=== PATIENT | female | born 1935 | race Caucasian/White ===

== ENCOUNTER 2017-07-28 13:02 | Emergency (ER) | payer MEDICARE ==
[2017-07-28 14:23] LABS: BASOPHILS % (AUTO) 0.2 % (0.0-5.0); HEMATOCRIT 40.3 % (36-48); LYMPHOCYTES % (AUTO) 16.4 % (21.0-51.0); MEAN CORPUSCULAR HEMOGLOBIN 30.8 pg (27.0-33.0); MEAN CORPUSCULAR VOLUME 90.7 fL (79-99); MONOCYTES % (AUTO) 5.5 % (3.0-13.0); NEUTROPHILS % (AUTO) 76.9 % (40.0-77.0); PLATELET COUNT (AUTO) 499 K/uL (130-400); RED BLOOD CELL COUNT(AUTO) 4.44 MIL/uL (4.00-5.50); RED CELL DISTRIBUTION WIDTH 17.2 % (11.0-15.5); WHITE BLOOD COUNT (AUTO) 10.3 K/uL (4.8-10.8)
[2017-07-28 15:11] LABS: ALBUMIN 3.5 g/dL (3.5-5.0); BILIRUBIN,TOTAL 0.5 mg/dL (0.2-1.0); CREATININE 0.9 mg/dL (0.5-1.5); POTASSIUM 3.4 mmol/L (3.5-5.1); TOTAL PROTEIN, SERUM 7.2 g/dL (6.0-8.3)
[2017-07-28] MEDS ORDERED: METHYLPREDNISOLONE SOD SUCC 40MG/ML 1ML ONE (15:29)
[2017-07-28] MEDS ORDERED: BENZONATATE 100 MG CAPSULE PO ONE (15:29)
[2017-07-28] MEDS ORDERED: AZITHROMYCIN 250 MG TABLET PO ONE (15:30)
[2017-07-28] MEDS ORDERED: SODIUM CHLORIDE 0.9% 500ML 500 ML IV ONE (15:30)
[2017-10-01] MEDS ORDERED: PANT40TA25 PO (23:45)
[2017-10-01] MEDS ORDERED: FLUD.1 PO (23:45)
[2017-10-01] MEDS ORDERED: SERT50TA12 PO (23:45)
[2017-10-01] MEDS ORDERED: FLUD0.1T2 PO (23:45)
[2017-10-03] MEDS ORDERED: MIDO10TA PO (09:15)
[2017-10-03] MEDS ORDERED: MIDO5TAB PO (09:18)
== END 2017-07-28 15:55 | disposition home or self-care (01) ==
LOC: EDH 13:02
DX: J44.1 Chronic obstructive pulmonary disease with (acute) exacerbation (principal); I10 Essential (primary) hypertension; E78.5 Hyperlipidemia, unspecified; Z87.891 Personal history of nicotine dependence; Z88.0 Allergy status to penicillin; Z88.5 Allergy status to narcotic agent; Z88.8 Allergy status to other drugs, medicaments and biological substances; Z95.0 Presence of cardiac pacemaker
CPT/HCPCS: 36415; 71045; 80053; 83690; 84484; 85025; 87804 ×2; 93005; 96374; 99285; J2920; J7040

== ENCOUNTER 2017-08-04 13:53 | Inpatient (IN) | payer MEDICARE ==
[~2017-08-04] VITALS: Ht 152.4 cm; Wt 51.8 kg
[2017-08-04] MEDS ORDERED: SODIUM CHLORIDE 0.9% 1000ML 1,000 ML IV ONE (14:11)
[2017-08-04 15:06] LABS: BASOPHILS % (AUTO) 0.3 % (0.0-5.0); EOSINOPHILS % (AUTO) 1.1 % (0.0-8.0); HEMATOCRIT 38.9 % (36-48); LYMPHOCYTES % (AUTO) 23.2 % (21.0-51.0); MEAN CORPUSCULAR HEMOGLOBIN 31.9 pg (27.0-33.0); MEAN CORPUSCULAR HGB CONC 34.8 g/dL (32.0-36.0); MEAN CORPUSCULAR VOLUME 91.6 fL (79-99); MONOCYTES % (AUTO) 11.1 % (3.0-13.0); NEUTROPHILS % (AUTO) 64.3 % (40.0-77.0); NUCLEATED RED BLOOD CELLS 0.1 % (0.0-0.19); PLATELET COUNT (AUTO) 426 K/uL (130-400); RED BLOOD CELL COUNT(AUTO) 4.25 MIL/uL (4.00-5.50); RED CELL DISTRIBUTION WIDTH 17.7 % (11.0-15.5); WHITE BLOOD COUNT (AUTO) 10.2 K/uL (4.8-10.8)
[2017-08-04 15:20] LABS: CREATININE 1.3 mg/dL (0.5-1.5); POTASSIUM 3.1 mmol/L (3.5-5.1)
[2017-08-04 15:24] LABS: ALBUMIN 2.7 g/dL (3.5-5.0); BILIRUBIN,TOTAL 0.3 mg/dL (0.2-1.0); TOTAL PROTEIN, SERUM 6.4 g/dL (6.0-8.3)
[2017-08-04] MEDS ORDERED: LIDOCAINE/PRILOCAINE CREAM 5GM TUBE TP ONE (16:55)
[2017-08-04] MEDS ORDERED: FENTANYL CITRATE PF 50 MCG/1 ML 2ML VIAL ONE (16:55)
[2017-08-04 17:05] LABS: APPEARANCE,URINE Cloudy (CLEAR); BILIRUBIN,URINE Moderate (NEGATIVE); COLOR,URINE Dark Yellow (YELLOW); GLUCOSE, URINE (UA) Negative (NEGATIVE); KETONES,URINE Trace mg/dL (NEGATIVE); LEUKOCYTE ESTERASE ,URINE Moderate (NEGATIVE); NITRATE,URINE Negative (NEGATIVE); OCCULT BLOOD,URINE Negative (NEGATIVE); PROTEIN,URINE POS 1+ (NEGATIVE)
[2017-08-04 17:11] LABS: WBC,URINE 26-50 /HPF (0-1)
[2017-08-04 17:12] LABS: BACTERIA,URINE Few /HPF (None Seen); RBC,URINE None Seen /HPF (0-1)
[2017-08-04 17:13] LABS: SQUAMOUS EPITHELIAL CELL,UR TNTC /HPF (0-2)
[2017-08-04 20:28] VITALS: BP 97/67
[2017-08-04] MEDS ORDERED: MORPHINE SULFATE 4 MG/1ML SYG ONE (20:43)
[2017-08-04] MEDS ORDERED: POTASSIUM CHLORIDE 20MEQ/100ML 100 ML IV PRN (21:15)
[2017-08-04] MEDS ORDERED: POTASSIUM CHLORIDE 10% ELIXIR 20 MEQ/15 ML UDCUP PO PRN (21:15)
[2017-08-04] MEDS ORDERED: CEFTRIAXONE 1GM/D5W 50ML 50 ML IV SCH (21:15)
[2017-08-04] MEDS ORDERED: LIDOCAINE HCL-MPF 1% 2ML VIAL IVP PRN (21:15)
[2017-08-04] MEDS ORDERED: TEMA30CA PO (21:48)
[2017-08-04] MEDS ORDERED: MIRT30TA7 PO (21:51)
[2017-08-04] MEDS ORDERED: LATA2.5D2 OP (21:51)
[2017-08-04] MEDS ORDERED: PRAV40TA3 PO (21:51)
[2017-08-04] MEDS ORDERED: TIMO5DRO27 OP (21:51)
[2017-08-04] MEDS ORDERED: PREG100C PO (21:51)
[2017-08-04] MEDS ORDERED: PHARMACY COMMUNICATION MISC SCH (22:00)
[2017-08-04] MEDS ORDERED: FENTANYL CITRATE PF 50 MCG/1 ML 2ML VIAL IM PRN (22:00)
[2017-08-04] MEDS: CEFTRIAXONE SODIUM 1 GM IVP SCH (22:48)
[2017-08-04] MEDS ORDERED: TEMAZEPAM 30 MG CAP ONE (23:11)
[2017-08-04] MEDS ORDERED: TEMAZEPAM 30 MG CAP PO PRN (23:15)
[2017-08-04 23:38] VITALS: BP 115/75
[2017-08-05] MEDS: POTASSIUM CHLORIDE 20 MEQ ERTAB PO PRN ×3 (00:33→05:45)
[2017-08-05 04:00] VITALS: BP 128/73
[2017-08-05 04:50] LABS: BASOPHILS % (AUTO) 0.2 % (0.0-5.0); EOSINOPHILS % (AUTO) 1.9 % (0.0-8.0); HEMATOCRIT 31.9 % (36-48); MEAN CORPUSCULAR HEMOGLOBIN 31.6 pg (27.0-33.0); MEAN CORPUSCULAR HGB CONC 34.4 g/dL (32.0-36.0); MONOCYTES % (AUTO) 12.5 % (3.0-13.0); NEUTROPHILS % (AUTO) 55.4 % (40.0-77.0); PLATELET COUNT (AUTO) 322 K/uL (130-400); RED BLOOD CELL COUNT(AUTO) 3.46 MIL/uL (4.00-5.50); RED CELL DISTRIBUTION WIDTH 18.4 % (11.0-15.5); WHITE BLOOD COUNT (AUTO) 8.7 K/uL (4.8-10.8)
[2017-08-05 04:51] LABS: POTASSIUM 3.2 mmol/L (3.5-5.1)
[2017-08-05] MEDS ORDERED: MORPHINE SULFATE 4 MG/1ML SYG IM PRN (06:30)
[2017-08-05 08:32] VITALS: BP 156/108
[2017-08-05] MEDS: PREGABALIN 100 MG CAPSULE PO SCH ×3 (08:35→20:52)
[2017-08-05] MEDS: TIMOLOL MALEATE 0.25% 5 ML BOTTLE OP SCH (09:00)
[2017-08-05] MEDS: FAMOTIDINE/PF 20 MG/2 ML VIAL IV SCH (09:24)
[2017-08-05] MEDS: ENOXAPARIN SODIUM 40 MG/0.4 ML SYRINGE SQ SCH (09:24)
[2017-08-05] MEDS ORDERED: HYDROMORPHONE HCL 0.5 MG/0.5 ML ML ONE (09:58)
[2017-08-05] MEDS ORDERED: HYDROMORPHONE 1 MG/1 ML AMP IVP PRN (10:00)
[2017-08-05 11:00] VITALS: BP 76/50
[2017-08-05] MEDS: CALCITONIN 3.7 ML AEROSOL NS SCH (12:44)
[2017-08-05 13:38] VITALS: BP 95/41
[2017-08-05] MEDS: HYDROMORPHONE HCL 0.5 MG/0.5 ML ML IVP PRN ×2 (14:24→18:42)
[2017-08-05 16:13] VITALS: BP 88/59
[2017-08-05 19:27] VITALS: BP 99/52
[2017-08-05] MEDS: ATORVASTATIN CALCIUM 10 MG TABLET PO SCH (20:52)
[2017-08-05] MEDS: TEMAZEPAM 30 MG CAP PO SCH (20:53)
[2017-08-05] MEDS: LATANOPROST 2.5 ML DROPS OP SCH (20:57)
[2017-08-05] MEDS ORDERED: NON-FORMULARY MEDICATION 1 EACH (Mirtazapine 30 MG) PO SCH (21:00)
[2017-08-05] MEDS: CEFTRIAXONE SODIUM 1 GM IVP SCH (22:00)
[2017-08-06 03:57] VITALS: BP 131/77
[2017-08-06] MEDS: HYDROMORPHONE HCL 0.5 MG/0.5 ML ML IVP PRN ×5 (04:56→23:35)
[2017-08-06 05:29] LABS: POTASSIUM 4.7 mmol/L (3.5-5.1)
[2017-08-06 07:52] VITALS: BP 94/66
[2017-08-06] MEDS: TIMOLOL MALEATE 0.25% 5 ML BOTTLE OP SCH (08:47)
[2017-08-06] MEDS: FAMOTIDINE/PF 20 MG/2 ML VIAL IV SCH (08:47)
[2017-08-06] MEDS: ENOXAPARIN SODIUM 40 MG/0.4 ML SYRINGE SQ SCH (08:47)
[2017-08-06] MEDS: PREGABALIN 100 MG CAPSULE PO SCH ×2 (08:47→21:21)
[2017-08-06] MEDS: CALCITONIN 3.7 ML AEROSOL NS SCH (08:48)
[2017-08-06] MEDS: TRAMADOL HCL 50 MG TABLET PO PRN (10:49)
[2017-08-06 11:14] VITALS: BP 100/63
[2017-08-06 16:06] VITALS: BP 102/61
[2017-08-06 19:42] VITALS: BP 97/45
[2017-08-06] MEDS: ATORVASTATIN CALCIUM 10 MG TABLET PO SCH (21:21)
[2017-08-06] MEDS: TEMAZEPAM 30 MG CAP PO SCH (21:21)
[2017-08-06] MEDS: CEFTRIAXONE SODIUM 1 GM IVP SCH (21:31)
[2017-08-06] MEDS: LATANOPROST 2.5 ML DROPS OP SCH (21:32)
[2017-08-07] VITALS (7 sets, daily range): BP systolic 90–120; BP diastolic 52–77
[2017-08-07 04:24] LABS: BASOPHILS % (AUTO) 0.5 % (0.0-5.0); EOSINOPHILS % (AUTO) 4.3 % (0.0-8.0); HEMATOCRIT 28.2 % (36-48); LYMPHOCYTES % (AUTO) 27.6 % (21.0-51.0); MEAN CORPUSCULAR HEMOGLOBIN 31.1 pg (27.0-33.0); MEAN CORPUSCULAR HGB CONC 33.5 g/dL (32.0-36.0); MEAN CORPUSCULAR VOLUME 92.9 fL (79-99); MONOCYTES % (AUTO) 16.3 % (3.0-13.0); NEUTROPHILS % (AUTO) 51.3 % (40.0-77.0); PLATELET COUNT (AUTO) 266 K/uL (130-400); RED BLOOD CELL COUNT(AUTO) 3.03 MIL/uL (4.00-5.50); RED CELL DISTRIBUTION WIDTH 18.6 % (11.0-15.5); WHITE BLOOD COUNT (AUTO) 5.8 K/uL (4.8-10.8)
[2017-08-07 04:34] LABS: CREATININE 0.7 mg/dL (0.5-1.5); POTASSIUM 4.5 mmol/L (3.5-5.1)
[2017-08-07] MEDS: PREGABALIN 100 MG CAPSULE PO SCH ×2 (08:58→21:18)
[2017-08-07] MEDS: TIMOLOL MALEATE 0.25% 5 ML BOTTLE OP SCH (09:00)
[2017-08-07] MEDS: FAMOTIDINE/PF 20 MG/2 ML VIAL IV SCH (09:05)
[2017-08-07] MEDS: ENOXAPARIN SODIUM 40 MG/0.4 ML SYRINGE SQ SCH (09:05)
[2017-08-07] MEDS: HYDROMORPHONE HCL 0.5 MG/0.5 ML ML IVP PRN ×4 (09:07→23:13)
[2017-08-07] MEDS: ASPIRIN 81MG TAB.CHEW PO SCH (11:48)
[2017-08-07] MEDS: TRAMADOL HCL 50 MG TABLET PO PRN ×2 (11:48→15:43)
[2017-08-07] MEDS: CALCITONIN 3.7 ML AEROSOL NS SCH (13:00)
[2017-08-07] MEDS: ATORVASTATIN CALCIUM 10 MG TABLET PO SCH (21:18)
[2017-08-07] MEDS: TEMAZEPAM 30 MG CAP PO SCH (21:20)
[2017-08-07] MEDS: LATANOPROST 2.5 ML DROPS OP SCH (21:23)
[2017-08-07] MEDS: CEFTRIAXONE SODIUM 1 GM IVP SCH (23:26)
[2017-08-08 03:58] VITALS: BP 100/63
[2017-08-08 04:38] LABS: CREATININE 0.7 mg/dL (0.5-1.5); POTASSIUM 4.5 mmol/L (3.5-5.1)
[2017-08-08 07:49] VITALS: BP 112/69
[2017-08-08] MEDS: TIMOLOL MALEATE 0.25% 5 ML BOTTLE OP SCH (09:00)
[2017-08-08] MEDS: ASPIRIN 81MG TAB.CHEW PO SCH (10:11)
[2017-08-08] MEDS: FAMOTIDINE/PF 20 MG/2 ML VIAL IV SCH (10:11)
[2017-08-08] MEDS: PREGABALIN 100 MG CAPSULE PO SCH (10:11)
[2017-08-08] MEDS: ENOXAPARIN SODIUM 40 MG/0.4 ML SYRINGE SQ SCH (10:12)
[2017-08-08] MEDS: HYDROMORPHONE HCL 0.5 MG/0.5 ML ML IVP PRN (10:22)
[2017-08-08] MEDS ORDERED: LACTULOSE 20 GM/30 ML UDCUP ONE (10:46)
[2017-08-08 11:11] VITALS: BP 118/70
[2017-08-08] MEDS: TRAMADOL HCL 50 MG TABLET PO PRN (12:00)
[2017-08-08] MEDS ORDERED: LACTULOSE 20 GM/30 ML UDCUP PO SCH (12:15)
[2017-08-08] MEDS: CALCITONIN 3.7 ML AEROSOL NS SCH (13:00)
[2017-08-08] MEDS: CEFTRIAXONE SODIUM 1 GM IVP SCH (15:51)
[2017-10-01] MEDS ORDERED: SERT50TA12 PO (23:45)
[2017-10-01] MEDS ORDERED: FLUD.1 PO (23:45)
[2017-10-01] MEDS ORDERED: FLUD0.1T2 PO (23:45)
[2017-10-01] MEDS ORDERED: PANT40TA25 PO (23:45)
[2017-10-03] MEDS ORDERED: MIDO10TA PO (09:15)
[2017-10-03] MEDS ORDERED: MIDO5TAB PO (09:18)
== END 2017-08-08 15:50 | DRG 543 ==
LOC: EDH 13:53 → EDHIP 17:06 → OBSVTOIN 17:06 → 2AH 20:20
PROVIDERS: ADMIT Internal Medicine Nephrology; ATTEND Internal Medicine Nephrology
PROC: 4A00X4Z Measurement of Central Nervous Electrical Activity, External Approach (ICD-10-PCS; principal; 2017-08-06)
DX: M80.88XA Other osteoporosis with current pathological fracture, vertebra(e), initial encounter for fracture (principal); N39.0 Urinary tract infection, site not specified; E78.5 Hyperlipidemia, unspecified; W18.30XA Fall on same level, unspecified, initial encounter; I10 Essential (primary) hypertension; J32.0 Chronic maxillary sinusitis; Z87.891 Personal history of nicotine dependence; Z95.0 Presence of cardiac pacemaker; Y93.89 Activity, other specified; Y92.89 Other specified places as the place of occurrence of the external cause; Y99.8 Other external cause status; Z88.0 Allergy status to penicillin; Z88.8 Allergy status to other drugs, medicaments and biological substances; R42 Dizziness and giddiness
CPT/HCPCS: 36415; 70450; 72131; 80048; 80053; 81001; 82550; 84484; 85025; 93005; 93306; 93880; 95819; 97039; A4218; J0696; J1170; J1650; J2270; J3010; J3490; J7030

== ENCOUNTER 2018-01-26 11:58 | Emergency (ER) | payer MEDICARE ==
[~2018-01-26 11:58] MED LIST: LATA2.5D2 OP; MIDO5TAB PO; PANT40TA25 PO; PRAV40TA3 PO; SERT50TA12 PO; TEMA30CA PO; TIMO5DRO27 OP
[2018-01-26 13:02] LABS: APPEARANCE,URINE Clear (CLEAR); BILIRUBIN,URINE Negative (NEGATIVE); COLOR,URINE Yellow (YELLOW); GLUCOSE, URINE (UA) Negative (NEGATIVE); KETONES,URINE Negative (NEGATIVE); LEUKOCYTE ESTERASE ,URINE Negative (NEGATIVE); NITRATE,URINE Negative (NEGATIVE); OCCULT BLOOD,URINE Negative (NEGATIVE); PROTEIN,URINE Negative (NEGATIVE); UROBILINOGEN,URINE 0.2 mg/dL (0.2-1.0)
[2018-01-26 13:07] LABS: EOSINOPHILS % (AUTO) 2.3 % (0.0-8.0); HEMATOCRIT 38.3 % (36-48); LYMPHOCYTES % (AUTO) 37.7 % (21.0-51.0); MEAN CORPUSCULAR HEMOGLOBIN 27.3 pg (27.0-33.0); MEAN CORPUSCULAR HGB CONC 33.1 g/dL (32.0-36.0); MEAN CORPUSCULAR VOLUME 82.3 fL (79-99); MONOCYTES % (AUTO) 8.9 % (3.0-13.0); NEUTROPHILS % (AUTO) 50.1 % (40.0-77.0); NUCLEATED RED BLOOD CELLS 0.1 % (0.0-0.19); PLATELET COUNT (AUTO) 553 K/uL (130-400); RED BLOOD CELL COUNT(AUTO) 4.65 MIL/uL (4.00-5.50); RED CELL DISTRIBUTION WIDTH 19.2 % (11.0-15.5); WHITE BLOOD COUNT (AUTO) 6.5 K/uL (4.8-10.8)
[2018-01-26 13:34] LABS: ALBUMIN 3.3 g/dL (3.5-5.0); BILIRUBIN,TOTAL 0.2 mg/dL (0.2-1.0); CREATININE 1.3 mg/dL (0.5-1.5); POTASSIUM 4.4 mmol/L (3.5-5.1); TOTAL PROTEIN, SERUM 7.3 g/dL (6.0-8.3)
== END 2018-01-26 14:07 | disposition home or self-care (01) ==
LOC: EDH 11:58
DX: N39.0 Urinary tract infection, site not specified (principal); E78.5 Hyperlipidemia, unspecified; I10 Essential (primary) hypertension; Z95.0 Presence of cardiac pacemaker; Z88.0 Allergy status to penicillin; Z88.6 Allergy status to analgesic agent; Z88.8 Allergy status to other drugs, medicaments and biological substances
CPT/HCPCS: 36415; 80053; 81003; 85025; 93005

== ENCOUNTER 2018-03-10 12:19 | Inpatient (IN) | payer MEDICARE ==
[~2018-03-10] VITALS: Ht 165.1 cm; Wt 61.5 kg
[2018-03-10] MEDS ORDERED: EPINEPHRINE 1 MG/ML AMPULE ONE (12:22)
[2018-03-10] MEDS ORDERED: SODIUM CHLORIDE 0.9% 1000ML 1,000 ML IV ONE (12:26)
[2018-03-10] MEDS ORDERED: METHYLPREDNISOLONE SOD SUCC 125MG/2ML VIAL ONE (12:26)
[2018-03-10 12:54] LABS: BASOPHILS % (AUTO) 0.1 % (0.0-5.0); EOSINOPHILS % (AUTO) 1.3 % (0.0-8.0); HEMATOCRIT 41.8 % (36-48); LYMPHOCYTES % (AUTO) 5.6 % (21.0-51.0); MEAN CORPUSCULAR HEMOGLOBIN 27.4 pg (27.0-33.0); MEAN CORPUSCULAR HGB CONC 33.1 g/dL (32.0-36.0); MEAN CORPUSCULAR VOLUME 82.7 fL (79-99); MONOCYTES % (AUTO) 2.6 % (3.0-13.0); NEUTROPHILS % (AUTO) 90.4 % (40.0-77.0); PLATELET COUNT (AUTO) 387 K/uL (130-400); RED BLOOD CELL COUNT(AUTO) 5.05 MIL/uL (4.00-5.50); RED CELL DISTRIBUTION WIDTH 20.4 % (11.0-15.5)
[2018-03-10 13:00] LABS: ABG BASE EXCESS -4.2 mmol/L (-2.0-3.0); ABG HCO3 18.7 mmol/L (21.0-28.0); ABG OXYGEN SATURATION 99.8 % (95.0-99.0); ABG PCO2 29 mmHg (32-45)
[2018-03-10 13:12] LABS: CARBON DIOXIDE 19 mmol/L (21-32); CHLORIDE 96 mmol/L (101-111); CREATININE 1.6 mg/dL (0.5-1.5); GLOMERULAR FILTR. RATE CALC 33 mL/min (>60); GLUCOSE,RANDOM 100 mg/dL (70-105); POTASSIUM 4.5 mmol/L (3.5-5.1); SODIUM SERUM 128 mmol/L (136-145); UREA NITROGEN, BLOOD 36 mg/dL (7-18)
[2018-03-10 13:17] LABS: ALANINE AMINOTRANSFERASE 20 U/L (12-78); ALBUMIN 2.7 g/dL (3.5-5.0); ASPARTATE AMINOTRANSFERASE 39 U/L (10-37); BILIRUBIN,DIRECT < 0.1 mg/dL (0.0-0.3); BILIRUBIN,TOTAL 0.5 mg/dL (0.2-1.0); TOTAL PROTEIN, SERUM 7.1 g/dL (6.0-8.3)
[2018-03-10] MEDS ORDERED: DiphenhydrAMINE HCL 50 MG/ML VIAL ONE (13:27)
[2018-03-10 14:00] VITALS: BP 132/65
[2018-03-10] MEDS ORDERED: LIDOCAINE HCL-MPF 1% 2ML VIAL IJ PRN (15:45)
[2018-03-10] MEDS ORDERED: LACTULOSE 20 GM/30 ML UDCUP PO PRN (15:45)
[2018-03-10] MEDS ORDERED: POTASSIUM CHLORIDE 20 MEQ ERTAB PO PRN (15:45)
[2018-03-10] MEDS ORDERED: CLONIDINE HCL 0.1 MG TABLET PO PRN (15:45)
[2018-03-10] MEDS ORDERED: POTASSIUM CHLORIDE 10% ELIXIR 20 MEQ/15 ML UDCUP PO PRN (15:45)
[2018-03-10] MEDS ORDERED: POTASSIUM CHLORIDE 20MEQ/100ML 100 ML IV PRN (15:45)
[2018-03-10] MEDS ORDERED: DiphenhydrAMINE HCL 50 MG/ML VIAL IVP PRN (15:45)
[2018-03-10] MEDS ORDERED: NITROGLYCERIN 0.4 MG SL TAB SL PRN (15:45)
[2018-03-10] MEDS ORDERED: MAG HYDROX/AL HYDROX/SIMETH ES 30 ML SUSP UDCUP PO PRN (15:45)
[2018-03-10] MEDS ORDERED: ONDANSETRON HCL 4 MG/2 ML VIAL IVP PRN (15:45)
[2018-03-10] MEDS ORDERED: ZOLPIDEM TARTRATE 5 MG TAB PO PRN (15:45)
[2018-03-10] MEDS ORDERED: SODIUM CHLORIDE 0.9% 10 ML VIAL IVP SCH (15:45)
[2018-03-10 16:27] VITALS: BP 114/75
[2018-03-10] MEDS: GUAIFENESIN SUGAR-FREE 100 MG/5 ML UDCUP PO PRN (16:41)
[2018-03-10] MEDS: DIPHENHYDRAMINE HCL 25 MG CAPSULE PO PRN (16:41)
[2018-03-10 19:00] VITALS: BP 113/66
[2018-03-10 20:16] LABS: APPEARANCE,URINE Clear (CLEAR); BILIRUBIN,URINE Negative (NEGATIVE); COLOR,URINE Yellow (YELLOW); GLUCOSE, URINE (UA) Negative (NEGATIVE); KETONES,URINE Trace mg/dL (NEGATIVE); LEUKOCYTE ESTERASE ,URINE Negative (NEGATIVE); NITRATE,URINE Negative (NEGATIVE); OCCULT BLOOD,URINE Negative (NEGATIVE); PH,URINE 5.5 (5.0-8.0); PROTEIN,URINE POS 2+ (NEGATIVE)
[2018-03-10 20:28] LABS: BACTERIA,URINE Rare /HPF (None Seen); RBC,URINE 0-1 /HPF (0-1); WBC,URINE 0-1 /HPF (0-1)
[2018-03-10 20:29] LABS: MUCUS,URINE Few LPF (None Seen); SQUAMOUS EPITHELIAL CELL,UR Few /HPF (0-2)
[2018-03-10] MEDS: METHYLPREDNISOLONE SOD SUCC 125MG/2ML VIAL IVP SCH (21:07)
[2018-03-10] MEDS: FAMOTIDINE 20MG TAB 20 MG TAB PO SCH (21:07)
[2018-03-10] MEDS: DiphenhydrAMINE HCL 50 MG/ML VIAL IVP SCH (21:07)
[2018-03-10 23:25] VITALS: BP 131/60
[2018-03-11] MEDS: DIPHENHYDRAMINE HCL 25 MG CAPSULE PO PRN ×2 (01:51→15:34)
[2018-03-11] MEDS: IPRATROPIUM/ALBUTEROL SULFATE 3 ML SOLUTION IH PRN ×2 (02:07→21:36)
[2018-03-11] MEDS: LORAZEPAM 2 MG/ML 1 ML VIAL IVP PRN (04:04)
[2018-03-11 04:25] VITALS: BP 125/63
[2018-03-11 07:00] VITALS: BP 132/72
[2018-03-11] MEDS ORDERED: DOCUSATE SODIUM 100 MG CAP PO PRN (09:00)
[2018-03-11] MEDS ORDERED: CLON1TAB12 PO (09:05)
[2018-03-11] MEDS: METHYLPREDNISOLONE SOD SUCC 125MG/2ML VIAL IVP SCH ×2 (09:15→21:25)
[2018-03-11] MEDS: FAMOTIDINE 20MG TAB 20 MG TAB PO SCH ×2 (09:16→21:25)
[2018-03-11] MEDS: DiphenhydrAMINE HCL 50 MG/ML VIAL IVP SCH ×2 (09:16→21:25)
[2018-03-11] MEDS: SODIUM CHLORIDE 0.9% 1000ML 1,000 ML IV SCH ×2 (09:16→23:04)
[2018-03-11 11:00] VITALS: BP 150/86
[2018-03-11] MEDS ORDERED: ACETAMINOPHEN 325 MG TAB ONE (15:33)
[2018-03-11 16:00] VITALS: BP 156/90
[2018-03-11] MEDS ORDERED: FLUO40CA49 PO (16:42)
[2018-03-11] MEDS ORDERED: PREG200C PO (16:42)
[2018-03-11] MEDS ORDERED: LEVO25TA54 PO (16:42)
[2018-03-11] MEDS ORDERED: MOM30 PO (16:42)
[2018-03-11] MEDS ORDERED: PANT40TA25 PO (16:42)
[2018-03-11] MEDS ORDERED: ALPR0.5T8 PO (16:42)
[2018-03-11] MEDS ORDERED: ALPR-409 PO (16:42)
[2018-03-11] MEDS ORDERED: MAGN400C PO (16:42)
[2018-03-11] MEDS ORDERED: ATOR40TA69 PO (16:42)
[2018-03-11] MEDS ORDERED: HYDR10TA14 PO (16:42)
[2018-03-11] MEDS ORDERED: LEVE500T19 PO (16:42)
[2018-03-11] MEDS ORDERED: TEMA30CA PO (16:42)
[2018-03-11 19:58] VITALS: BP 162/86
[2018-03-11] MEDS: GUAIFENESIN SUGAR-FREE 100 MG/5 ML UDCUP PO PRN (21:25)
[2018-03-11 23:16] VITALS: BP 148/77
[2018-03-12] MEDS: GUAIFENESIN SUGAR-FREE 100 MG/5 ML UDCUP PO PRN (01:22)
[2018-03-12] MEDS: IPRATROPIUM/ALBUTEROL SULFATE 3 ML SOLUTION IH PRN ×2 (01:32→21:18)
[2018-03-12 04:34] LABS: HEMATOCRIT 31.6 % (36-48); MEAN CORPUSCULAR HEMOGLOBIN 27.3 pg (27.0-33.0); MEAN CORPUSCULAR HGB CONC 33.4 g/dL (32.0-36.0); MEAN CORPUSCULAR VOLUME 81.9 fL (79-99); PLATELET COUNT (AUTO) 374 K/uL (130-400); RED BLOOD CELL COUNT(AUTO) 3.86 MIL/uL (4.00-5.50); RED CELL DISTRIBUTION WIDTH 20.5 % (11.0-15.5); WHITE BLOOD COUNT (AUTO) 20.6 K/uL (4.8-10.8)
[2018-03-12 04:36] VITALS: BP 153/85
[2018-03-12 04:50] LABS: CREATININE 0.7 mg/dL (0.5-1.5); POTASSIUM 3.3 mmol/L (3.5-5.1)
[2018-03-12] MEDS: ACETAMINOPHEN 325 MG TAB PO PRN (05:58)
[2018-03-12] MEDS: LORAZEPAM 2 MG/ML 1 ML VIAL IVP PRN ×2 (07:37→21:20)
[2018-03-12 08:13] VITALS: BP 149/76
[2018-03-12] MEDS: TIMOLOL MALEATE 0.25% 5 ML BOTTLE OP SCH (09:00)
[2018-03-12] MEDS ORDERED: MAGNESIUM HYDROXIDE 30 ML/UDCUP PO SCH (09:00)
[2018-03-12] MEDS ORDERED: CLONAZEPAM 1 MG TABLET PO SCH (09:00)
[2018-03-12] MEDS: PANTOPRAZOLE SODIUM 40 MG TABLET.DR PO SCH (09:00)
[2018-03-12] MEDS: PREGABALIN 100 MG CAPSULE PO SCH ×2 (10:15→21:10)
[2018-03-12] MEDS: MIDODRINE HCL 5 MG TABLET PO SCH ×2 (10:15→21:00)
[2018-03-12] MEDS: ALPRAZOLAM 0.5 MG TABLET PO SCH (10:15)
[2018-03-12] MEDS: SERTRALINE HCL 50 MG TABLET PO SCH (10:15)
[2018-03-12] MEDS: FAMOTIDINE 20MG TAB 20 MG TAB PO SCH ×2 (10:15→21:09)
[2018-03-12] MEDS: DiphenhydrAMINE HCL 50 MG/ML VIAL IVP SCH ×2 (10:16→21:11)
[2018-03-12] MEDS: FLUOXETINE HCL 20 MG CAPSULE PO SCH (10:16)
[2018-03-12] MEDS: LEVETIRACETAM 500 MG TABLET PO SCH ×2 (10:16→21:10)
[2018-03-12] MEDS: METHYLPREDNISOLONE SOD SUCC 125MG/2ML VIAL IVP SCH ×2 (10:16→21:11)
[2018-03-12] MEDS: SODIUM CHLORIDE 0.9% 1000ML 1,000 ML IV SCH (11:40)
[2018-03-12 11:55] VITALS: BP 144/82
[2018-03-12 16:39] VITALS: BP 146/82
[2018-03-12] MEDS: MAGNESIUM OXIDE 400 MG TABLET PO SCH ×2 (17:00→18:21)
[2018-03-12] MEDS: HYDROCORTISONE 20 MG TABLET PO SCH (18:18)
[2018-03-12 19:00] VITALS: BP 130/78
[2018-03-12] MEDS: CLONAZEPAM 1 MG TABLET PO SCH (21:00)
[2018-03-12] MEDS: TEMAZEPAM 30 MG CAP PO SCH (21:00)
[2018-03-12] MEDS: SIMVASTATIN 20 MG TABLET PO SCH (21:10)
[2018-03-12] MEDS: LATANOPROST 2.5 ML DROPS OP SCH (22:10)
[2018-03-12 23:37] VITALS: BP 141/74
[2018-03-13] MEDS: SODIUM CHLORIDE 0.9% 1000ML 1,000 ML IV SCH ×2 (01:00→14:20)
[2018-03-13 03:07] VITALS: BP 162/86
[2018-03-13] MEDS: TEMAZEPAM 30 MG CAP PO SCH ×2 (03:27→21:00)
[2018-03-13 04:56] LABS: HEMATOCRIT 32.8 % (36-48); MEAN CORPUSCULAR HEMOGLOBIN 25.8 pg (27.0-33.0); MEAN CORPUSCULAR HGB CONC 31.5 g/dL (32.0-36.0); PLATELET COUNT (AUTO) 341 K/uL (130-400); RED CELL DISTRIBUTION WIDTH 20.3 % (11.0-15.5); WHITE BLOOD COUNT (AUTO) 9.8 K/uL (4.8-10.8)
[2018-03-13 05:07] LABS: CREATININE 0.8 mg/dL (0.5-1.5); POTASSIUM 3.8 mmol/L (3.5-5.1)
[2018-03-13] MEDS: LEVOTHYROXINE 25 MCG TABLET PO SCH (06:37)
[2018-03-13] MEDS: PANTOPRAZOLE SODIUM 40 MG TABLET.DR PO SCH (06:37)
[2018-03-13] MEDS: IPRATROPIUM/ALBUTEROL SULFATE 3 ML SOLUTION IH PRN (07:08)
[2018-03-13 08:00] VITALS: BP 171/76
[2018-03-13] MEDS: CLONAZEPAM 1 MG TABLET PO SCH (09:00)
[2018-03-13] MEDS: SERTRALINE HCL 50 MG TABLET PO SCH (10:12)
[2018-03-13] MEDS: MIDODRINE HCL 5 MG TABLET PO SCH ×2 (10:12→21:00)
[2018-03-13] MEDS: PREGABALIN 100 MG CAPSULE PO SCH ×2 (10:12→20:36)
[2018-03-13] MEDS: LEVETIRACETAM 500 MG TABLET PO SCH ×2 (10:13→20:35)
[2018-03-13] MEDS: ACETAMINOPHEN 325 MG TAB PO PRN ×2 (10:13→18:01)
[2018-03-13] MEDS: MAGNESIUM OXIDE 400 MG TABLET PO SCH ×2 (10:13→17:59)
[2018-03-13] MEDS: FAMOTIDINE 20MG TAB 20 MG TAB PO SCH ×2 (10:13→20:35)
[2018-03-13] MEDS: METHYLPREDNISOLONE SOD SUCC 125MG/2ML VIAL IVP SCH (10:14)
[2018-03-13] MEDS: FLUOXETINE HCL 20 MG CAPSULE PO SCH (10:14)
[2018-03-13] MEDS: ALPRAZOLAM 0.5 MG TABLET PO SCH (10:14)
[2018-03-13] MEDS: TIMOLOL MALEATE 0.25% 5 ML BOTTLE OP SCH (10:15)
[2018-03-13 12:05] VITALS: BP 175/79
[2018-03-13] MEDS: LORAZEPAM 2 MG/ML 1 ML VIAL IVP PRN ×2 (14:29→20:36)
[2018-03-13 16:52] VITALS: BP 143/67
[2018-03-13] MEDS: HYDROCORTISONE 20 MG TABLET PO SCH (17:59)
[2018-03-13 20:09] VITALS: BP 153/70
[2018-03-13] MEDS: SIMVASTATIN 20 MG TABLET PO SCH (20:36)
[2018-03-13] MEDS: LATANOPROST 2.5 ML DROPS OP SCH (20:37)
[2018-03-13 23:36] VITALS: BP 153/68
[2018-03-14] MEDS: GUAIFENESIN SUGAR-FREE 100 MG/5 ML UDCUP PO PRN (03:28)
[2018-03-14] MEDS: TEMAZEPAM 30 MG CAP PO SCH ×3 (03:28→22:48)
[2018-03-14] MEDS: IPRATROPIUM/ALBUTEROL SULFATE 3 ML SOLUTION IH PRN (03:39)
[2018-03-14] MEDS: SODIUM CHLORIDE 0.9% 1000ML 1,000 ML IV SCH ×2 (03:40→17:00)
[2018-03-14 04:00] VITALS: BP 158/75
[2018-03-14 08:00] VITALS: BP 156/75
[2018-03-14] MEDS: FLUOXETINE HCL 20 MG CAPSULE PO SCH (09:06)
[2018-03-14] MEDS: LEVETIRACETAM 500 MG TABLET PO SCH ×2 (09:06→21:34)
[2018-03-14] MEDS: MIDODRINE HCL 5 MG TABLET PO SCH ×2 (09:06→21:33)
[2018-03-14] MEDS: PREGABALIN 100 MG CAPSULE PO SCH ×2 (09:06→21:33)
[2018-03-14] MEDS: ACETAMINOPHEN 325 MG TAB PO PRN (09:07)
[2018-03-14] MEDS: LEVOTHYROXINE 25 MCG TABLET PO SCH (09:07)
[2018-03-14] MEDS: FAMOTIDINE 20MG TAB 20 MG TAB PO SCH ×2 (09:08→21:34)
[2018-03-14] MEDS: TIMOLOL MALEATE 0.25% 5 ML BOTTLE OP SCH (09:08)
[2018-03-14] MEDS: SERTRALINE HCL 50 MG TABLET PO SCH (09:08)
[2018-03-14] MEDS: MAGNESIUM OXIDE 400 MG TABLET PO SCH ×2 (09:08→17:46)
[2018-03-14] MEDS: PANTOPRAZOLE SODIUM 40 MG TABLET.DR PO SCH (09:08)
[2018-03-14] MEDS: METHYLPREDNISOLONE SOD SUCC 125MG/2ML VIAL IVP SCH (09:45)
[2018-03-14] MEDS: ALPRAZOLAM 0.5 MG TABLET PO SCH (09:47)
[2018-03-14 12:00] VITALS: BP 151/71
[2018-03-14 16:00] VITALS: BP 156/92
[2018-03-14] MEDS: HYDROCORTISONE 20 MG TABLET PO SCH (17:46)
[2018-03-14] MEDS ORDERED: LORAZEPAM 2 MG/ML 1 ML VIAL IVP ONE (18:15)
[2018-03-14 19:00] VITALS: BP 135/75
[2018-03-14] MEDS: LATANOPROST 2.5 ML DROPS OP SCH (21:32)
[2018-03-14] MEDS: SIMVASTATIN 20 MG TABLET PO SCH (21:33)
[2018-03-15] VITALS: BP 173/92
[2018-03-15 04:00] VITALS: BP 160/65
[2018-03-15] MEDS: SODIUM CHLORIDE 0.9% 1000ML 1,000 ML IV SCH (05:38)
[2018-03-15] MEDS: PANTOPRAZOLE SODIUM 40 MG TABLET.DR PO SCH (05:38)
[2018-03-15] MEDS: LEVOTHYROXINE 25 MCG TABLET PO SCH (05:38)
[2018-03-15] MEDS: FLUOXETINE HCL 20 MG CAPSULE PO SCH (08:37)
[2018-03-15] MEDS: MAGNESIUM OXIDE 400 MG TABLET PO SCH (08:37)
[2018-03-15] MEDS: ACETAMINOPHEN 325 MG TAB PO PRN (08:37)
[2018-03-15] MEDS: SERTRALINE HCL 50 MG TABLET PO SCH (08:37)
[2018-03-15 08:38] VITALS: BP 173/87
[2018-03-15] MEDS: METHYLPREDNISOLONE SOD SUCC 125MG/2ML VIAL IVP SCH (08:38)
[2018-03-15] MEDS: MIDODRINE HCL 5 MG TABLET PO SCH (08:38)
[2018-03-15] MEDS: PREGABALIN 100 MG CAPSULE PO SCH (08:38)
[2018-03-15] MEDS: LEVETIRACETAM 500 MG TABLET PO SCH (08:38)
[2018-03-15] MEDS: FAMOTIDINE 20MG TAB 20 MG TAB PO SCH (08:38)
[2018-03-15] MEDS: TIMOLOL MALEATE 0.25% 5 ML BOTTLE OP SCH (08:39)
[2018-03-15] MEDS ORDERED: ALPRAZOLAM 0.5 MG TABLET PO SCH (09:00)
[2018-03-15 09:13] VITALS: BP_SYST 153; BP_SYST 164; BP_DIAS 77; BP_DIAS 93
[2018-03-15 09:14] VITALS: BP 120/70
== END 2018-03-15 10:40 | disposition home or self-care (01) | DRG 915 ==
LOC: EDH 12:19 → EDHIP 12:20 → 3AH 14:03
PROVIDERS: ADMIT Family Medicine; ATTEND Family Medicine
DX: T78.40XA Allergy, unspecified, initial encounter (principal); N17.0 Acute kidney failure with tubular necrosis; E87.1 Hypo-osmolality and hyponatremia; I10 Essential (primary) hypertension; E78.5 Hyperlipidemia, unspecified; E86.0 Dehydration; J44.9 Chronic obstructive pulmonary disease, unspecified; Z96.649 Presence of unspecified artificial hip joint; X58.XXXA Exposure to other specified factors, initial encounter; Z95.1 Presence of aortocoronary bypass graft; Z88.0 Allergy status to penicillin; Z88.8 Allergy status to other drugs, medicaments and biological substances
CPT/HCPCS: 36415; 36600; 71046; 80048; 80076; 81001; 82803; 84484; 85025; 85027; 87040; 93005; 94640; 94664; 97039; 99291; A4218; J0171; J1200; J2060; J2930; J7030; Q0163

== ENCOUNTER 2018-05-05 10:44 | Inpatient (IN) | payer MEDICARE ==
[~2018-05-05] VITALS: Ht 152.4 cm; Wt 57.7 kg
[~2018-05-05 10:44] MED LIST changes: +ALPR0.5T8 PO; +ATOR40TA69 PO; +FLUO40CA49 PO; +HYDR-3894 PO; +LEVE500T19 PO; +LEVO25TA54 PO; +MAGN400C PO; +MOM30 PO; +PREG200C PO; -TEMA30CA PO
--- NOTE | 2018-05-05 11:20 | NUR ---
ADMITED PATIENT TO ROOM 332. PATIENT C/O ABDOMINAL PAIN. ASSESSMENT DONE AND RECORDED. VITAL SIGNS STABLE. DR. SCHAFER CALLED TO CLARIFY ORDERS. NEW ORDERS RECEIVED AND CARRIED OUT.
[2018-05-05] MEDS ORDERED: MORPHINE SULFATE 4 MG/1ML SYG IV PRN (11:45)
[2018-05-05 12:00] VITALS: BP 146/77
[2018-05-05 12:11] LABS: CREATININE 0.7 mg/dL (0.5-1.5); POTASSIUM 3.8 mmol/L (3.5-5.1)
[2018-05-05 12:13] LABS: BASOPHILS % (AUTO) 0.9 % (0.0-5.0); EOSINOPHILS % (AUTO) 1.6 % (0.0-8.0); HEMATOCRIT 40.5 % (36-48); LYMPHOCYTES % (AUTO) 17.9 % (21.0-51.0); MEAN CORPUSCULAR HEMOGLOBIN 27.1 pg (27.0-33.0); MEAN CORPUSCULAR VOLUME 82.3 fL (79-99); MONOCYTES % (AUTO) 13.8 % (3.0-13.0); NEUTROPHILS % (AUTO) 65.8 % (40.0-77.0); NUCLEATED RED BLOOD CELLS 0.1 % (0.0-0.19); PLATELET COUNT (AUTO) 417 K/uL (130-400); RED BLOOD CELL COUNT(AUTO) 4.92 MIL/uL (4.00-5.50); RED CELL DISTRIBUTION WIDTH 16.6 % (11.0-15.5)
[2018-05-05 12:37] LABS: ALBUMIN 3.5 g/dL (3.5-5.0); BILIRUBIN,TOTAL 0.5 mg/dL (0.2-1.0); TOTAL PROTEIN, SERUM 7.2 g/dL (6.0-8.3)
[2018-05-05] MEDS ORDERED: ACETAMINOPHEN-CODEINE 300/30MG TAB PO PRN (12:45)
--- NOTE | 2018-05-05 14:00 | NUR ---
PATIENT STATED SHE IS NOT ALLERGIC TO MORPHINE OR TYLENOL. SHE CLAIMS THOSE MEDICATIONS GIVE HER NO RELIEF TO HER PAIN, AND REQUEST TO HAVE A STRONGER MEDICATIONS AVAILABLE FOR HER PAIN, DR. SCHAFER AWARE.
[2018-05-05] MEDS ORDERED: DiphenhydrAMINE HCL 50 MG/ML VIAL IVP PRN (14:15)
[2018-05-05] MEDS ORDERED: ACETAMINOPHEN 325 MG TAB PO PRN ×2 (14:15)
[2018-05-05] MEDS ORDERED: MAG HYDROX/AL HYDROX/SIMETH ES 30 ML SUSP UDCUP PO PRN (14:15)
[2018-05-05] MEDS ORDERED: POTASSIUM CHLORIDE 10% ELIXIR 20 MEQ/15 ML UDCUP PO PRN (14:15)
[2018-05-05] MEDS ORDERED: NITROGLYCERIN 0.4 MG SL TAB SL PRN (14:15)
[2018-05-05] MEDS ORDERED: ONDANSETRON HCL 4 MG/2 ML VIAL IVP PRN (14:15)
[2018-05-05] MEDS ORDERED: CLONIDINE HCL 0.1 MG TABLET PO PRN (14:15)
[2018-05-05] MEDS ORDERED: DIPHENHYDRAMINE HCL 25 MG CAPSULE PO PRN (14:15)
[2018-05-05] MEDS ORDERED: LACTULOSE 20 GM/30 ML UDCUP PO PRN (14:15)
[2018-05-05] MEDS ORDERED: GUAIFENESIN SUGAR-FREE 100 MG/5 ML UDCUP PO PRN (14:15)
[2018-05-05] MEDS ORDERED: ZOLPIDEM TARTRATE 5 MG TAB PO PRN (14:15)
[2018-05-05] MEDS ORDERED: GUAIFENESIN-DM 200/20 MG 10 ML PO PRN (14:15)
[2018-05-05] MEDS ORDERED: PHARMACY COMMUNICATION MISC SCH ×2 (14:15→17:15)
[2018-05-05 16:00] VITALS: BP 150/93
[2018-05-05] MEDS ORDERED: IOHEXOL-350 75 ML VIAL IV ONE ×2 (16:48→19:49)
[2018-05-05] MEDS ORDERED: MORPHINE SULFATE 4 MG/1ML SYG IM PRN (17:45)
[2018-05-05] MEDS: MORPHINE SULFATE 4 MG/1ML SYG IV PRN ×2 (18:16→22:08)
[2018-05-05 19:15] VITALS: BP 118/65
[2018-05-05] MEDS ORDERED: PREG100C PO (19:51)
[2018-05-05] MEDS ORDERED: ALPR0.5T8 PO (19:51)
[2018-05-05] MEDS ORDERED: PRED20TA3 PO (19:51)
[2018-05-05] MEDS ORDERED: CYCL5TAB PO (19:51)
[2018-05-05] MEDS ORDERED: TEMA30CA PO (19:51)
[2018-05-05] MEDS ORDERED: HYDR5TAB8 PO (19:51)
[2018-05-05] MEDS ORDERED: FAMOTIDINE 20MG TAB 20 MG TAB PO SCH (21:00)
[2018-05-05 23:00] VITALS: BP 103/65
[2018-05-05 23:07] LABS: APPEARANCE,URINE Clear (CLEAR); BILIRUBIN,URINE Negative (NEGATIVE); COLOR,URINE Yellow (YELLOW); GLUCOSE, URINE (UA) Negative (NEGATIVE); KETONES,URINE Negative (NEGATIVE); LEUKOCYTE ESTERASE ,URINE Negative (NEGATIVE); NITRATE,URINE Negative (NEGATIVE); OCCULT BLOOD,URINE Nonhemolyzed Trace (NEGATIVE); PROTEIN,URINE Trace (NEGATIVE); UROBILINOGEN,URINE 0.2 mg/dL (0.2-1.0)
[2018-05-05 23:29] LABS: BACTERIA,URINE Few /HPF (None Seen); MUCUS,URINE Moderate LPF (None Seen); RBC,URINE 0-1 /HPF (0-1); SQUAMOUS EPITHELIAL CELL,UR Moderate /HPF (0-2); WBC,URINE None Seen /HPF (0-1)
[2018-05-06] MEDS ORDERED: SODIUM CHLORIDE 0.9% 1000ML 1,000 ML IV ONE (02:56)
[2018-05-06] MEDS: SODIUM CHLORIDE 0.9% 1000ML 1,000 ML IV SCH ×2 (03:00→13:00)
[2018-05-06] MEDS: MORPHINE SULFATE 4 MG/1ML SYG IV PRN ×4 (03:36→22:04)
[2018-05-06 04:24] VITALS: BP 100/57
[2018-05-06] MEDS: IBUPROFEN 800 MG TAB PO PRN (05:35)
[2018-05-06 08:00] VITALS: BP 165/100
--- NOTE | 2018-05-06 08:09 | NUR ---
ADMINISTERED CLONIDINE 0.1 PER EMAR FOR PATIENT BP OF 165/100 PULSE 76. WILL CONTINUE TO MONITOR PATIENT. PATIENT C/O HEADACHE.
[2018-05-06] MEDS: FAMOTIDINE 20MG TAB 20 MG TAB PO SCH (09:00)
[2018-05-06] MEDS: LEVETIRACETAM 500 MG TABLET PO SCH ×2 (09:00→22:07)
[2018-05-06] MEDS: CYCLOBENZAPRINE HCL 10 MG TABLET PO SCH (09:00)
[2018-05-06] MEDS: MAGNESIUM HYDROXIDE 30 ML/UDCUP PO SCH (09:00)
--- NOTE | 2018-05-06 09:27 | NUR ---
RE-CHECKED PATIENT'S BP 150/75 PULSE 75. WILL CONTINUE TO MONITOR PATIENT.
[2018-05-06 12:00] VITALS: BP 144/90
[2018-05-06] MEDS: PREGABALIN 100 MG CAPSULE PO SCH ×2 (12:21→22:07)
[2018-05-06] MEDS: FLUOXETINE HCL 20 MG CAPSULE PO SCH (12:21)
[2018-05-06] MEDS: MAGNESIUM OXIDE 400 MG TABLET PO SCH ×2 (12:21→22:07)
[2018-05-06] MEDS: ALPRAZOLAM 0.5 MG TABLET PO SCH (12:22)
--- NOTE | 2018-05-06 14:30 | NUR ---
ROHITH NEWBERRY AT BEDSIDE- PT, ALONE, UP WITH LILLIANA RAMSAY, LIVES AT [facility], '"LOVE IT, THAT IS WHERE I WILL RETURN" [facility] HAS A PROVIDER FOR 3 HR EACH AFTERNOON, NO HOME HEALTH RN OVERSIGHT AT THIS TIME, HOME IS SAFE AND WHEELCHAIR ACCESSIBLE, DCPLAN BACK TO SAME ARRANGEMENT Addendum: 05/06/18 at 1929 by ALTAGRACIA WHATLEY RN CM Amended: Links added.
[2018-05-06] MEDS: METRONIDAZOLE 500MG/100ML BAG 100 ML IV SCH ×2 (14:39→22:05)
[2018-05-06 16:00] VITALS: BP 116/74
--- NOTE | 2018-05-06 17:30 | NUR ---
DR. CORRIGAN CALLED. POC DISCUSSED. ENDOSCOPIC ULTRASOUND WITH ANESTHESIA ORDERED. AUDITOR INTERNAL AWARE. PER DR. CORRIGAN, DR. RYANNE GUO WILL BE THE ONE DOING THE PROCEDURE. PATIENT AWARE. NO CONCERNS VOICED.
[2018-05-06] MEDS: IPRATROPIUM/ALBUTEROL SULFATE 3 ML SOLUTION IH PRN (19:29)
[2018-05-06 19:35] VITALS: BP 119/76
[2018-05-06] MEDS: TEMAZEPAM 30 MG CAP PO SCH (22:07)
[2018-05-06] MEDS: PANTOPRAZOLE SODIUM 40 MG TABLET.DR PO SCH (22:07)
[2018-05-06] MEDS: ATORVASTATIN CALCIUM 40 MG TABLET PO SCH (22:07)
[2018-05-07] VITALS (18 sets, daily range): BP systolic 86–158; BP diastolic 36–95
[2018-05-07] MEDS: METRONIDAZOLE 500MG/100ML BAG 100 ML IV SCH ×3 (05:41→21:16)
[2018-05-07] MEDS: SODIUM CHLORIDE 0.9% 1000ML 1,000 ML IV SCH ×2 (05:42→16:00)
[2018-05-07 06:04] LABS: BASOPHILS % (AUTO) 0.7 % (0.0-5.0); EOSINOPHILS % (AUTO) 3.9 % (0.0-8.0); HEMATOCRIT 32.7 % (36-48); LYMPHOCYTES % (AUTO) 14.6 % (21.0-51.0); MEAN CORPUSCULAR HEMOGLOBIN 27.4 pg (27.0-33.0); MEAN CORPUSCULAR HGB CONC 32.8 g/dL (32.0-36.0); MEAN CORPUSCULAR VOLUME 83.5 fL (79-99); MONOCYTES % (AUTO) 11.4 % (3.0-13.0); NEUTROPHILS % (AUTO) 69.4 % (40.0-77.0); NUCLEATED RED BLOOD CELLS 0.2 % (0.0-0.19); PLATELET COUNT (AUTO) 364 K/uL (130-400); RED BLOOD CELL COUNT(AUTO) 3.91 MIL/uL (4.00-5.50); RED CELL DISTRIBUTION WIDTH 16.3 % (11.0-15.5); WHITE BLOOD COUNT (AUTO) 7.8 K/uL (4.8-10.8)
[2018-05-07 06:08] LABS: ALBUMIN 2.9 g/dL (3.5-5.0); BILIRUBIN,TOTAL 0.3 mg/dL (0.2-1.0); CREATININE 0.6 mg/dL (0.5-1.5)
[2018-05-07] MEDS ORDERED: PROPOFOL 10 MG/ML 20ML VIAL IV ONE (06:23)
[2018-05-07] MEDS ORDERED: LIDOCAINE HCL-MPF 2% 5ML VIAL ONE (06:24)
[2018-05-07] MEDS: IPRATROPIUM/ALBUTEROL SULFATE 3 ML SOLUTION IH PRN (06:26)
[2018-05-07] MEDS: MAGNESIUM OXIDE 400 MG TABLET PO SCH ×2 (08:40→20:43)
[2018-05-07] MEDS: MAGNESIUM HYDROXIDE 30 ML/UDCUP PO SCH (08:40)
[2018-05-07] MEDS: FLUOXETINE HCL 20 MG CAPSULE PO SCH (08:40)
[2018-05-07] MEDS: FAMOTIDINE 20MG TAB 20 MG TAB PO SCH (08:40)
[2018-05-07] MEDS: PREDNISONE 10 MG TABLET PO SCH (08:41)
[2018-05-07] MEDS: PREGABALIN 100 MG CAPSULE PO SCH ×2 (08:41→20:43)
[2018-05-07] MEDS: PANTOPRAZOLE SODIUM 40 MG TABLET.DR PO SCH ×2 (08:41→17:29)
[2018-05-07] MEDS: LEVETIRACETAM 500 MG TABLET PO SCH ×2 (08:41→20:43)
[2018-05-07] MEDS: ALPRAZOLAM 0.5 MG TABLET PO SCH (08:42)
[2018-05-07] MEDS: LEVOTHYROXINE 25 MCG TABLET PO SCH (08:52)
[2018-05-07] MEDS: CYCLOBENZAPRINE HCL 10 MG TABLET PO SCH (13:27)
[2018-05-07] MEDS: HYDROCORTISONE 15 MG PO SCH (16:30)
[2018-05-07] MEDS: TEMAZEPAM 30 MG CAP PO SCH (20:43)
[2018-05-07] MEDS: ATORVASTATIN CALCIUM 40 MG TABLET PO SCH (20:43)
[2018-05-08] VITALS (7 sets, daily range): BP systolic 106–150; BP diastolic 48–89
[2018-05-08] MEDS: SODIUM CHLORIDE 0.9% 1000ML 1,000 ML IV SCH ×2 (05:05→19:34)
[2018-05-08] MEDS: METRONIDAZOLE 500MG/100ML BAG 100 ML IV SCH ×2 (05:06→13:22)
[2018-05-08 05:23] LABS: HEMATOCRIT 30.4 % (36-48); MEAN CORPUSCULAR HEMOGLOBIN 28.1 pg (27.0-33.0); MEAN CORPUSCULAR HGB CONC 34.2 g/dL (32.0-36.0); MEAN CORPUSCULAR VOLUME 82.1 fL (79-99); PLATELET COUNT (AUTO) 353 K/uL (130-400); RED BLOOD CELL COUNT(AUTO) 3.71 MIL/uL (4.00-5.50); RED CELL DISTRIBUTION WIDTH 16.5 % (11.0-15.5); WHITE BLOOD COUNT (AUTO) 8.6 K/uL (4.8-10.8)
[2018-05-08 05:37] LABS: ALBUMIN 2.7 g/dL (3.5-5.0); BILIRUBIN,TOTAL 0.4 mg/dL (0.2-1.0); CREATININE 0.5 mg/dL (0.5-1.5); TOTAL PROTEIN, SERUM 5.7 g/dL (6.0-8.3)
[2018-05-08] MEDS: LIDOCAINE HCL-MPF 1% 2ML VIAL IJ PRN (05:49)
[2018-05-08] MEDS: POTASSIUM CHLORIDE 20MEQ/100ML 100 ML IV PRN (05:49)
[2018-05-08] MEDS: LEVOTHYROXINE 25 MCG TABLET PO SCH (08:57)
[2018-05-08] MEDS: LEVETIRACETAM 500 MG TABLET PO SCH ×2 (08:57→20:31)
[2018-05-08] MEDS: ALPRAZOLAM 0.5 MG TABLET PO SCH (08:57)
[2018-05-08] MEDS: PREGABALIN 100 MG CAPSULE PO SCH ×2 (08:57→20:32)
[2018-05-08] MEDS: PREDNISONE 10 MG TABLET PO SCH (08:57)
[2018-05-08] MEDS: MAGNESIUM OXIDE 400 MG TABLET PO SCH ×2 (08:57→20:31)
[2018-05-08] MEDS: PANTOPRAZOLE SODIUM 40 MG TABLET.DR PO SCH ×2 (08:57→16:44)
[2018-05-08] MEDS: FLUOXETINE HCL 20 MG CAPSULE PO SCH (08:57)
[2018-05-08] MEDS: CYCLOBENZAPRINE HCL 10 MG TABLET PO SCH (08:58)
[2018-05-08] MEDS: POTASSIUM CHLORIDE 20 MEQ ERTAB PO PRN (08:58)
[2018-05-08] MEDS: FAMOTIDINE 20MG TAB 20 MG TAB PO SCH (08:58)
[2018-05-08] MEDS: MAGNESIUM HYDROXIDE 30 ML/UDCUP PO SCH (09:00)
[2018-05-08] MEDS: IPRATROPIUM/ALBUTEROL SULFATE 3 ML SOLUTION IH PRN (09:42)
[2018-05-08] MEDS: HYDROCORTISONE 15 MG PO SCH (16:30)
[2018-05-08] MEDS: ATORVASTATIN CALCIUM 40 MG TABLET PO SCH (20:31)
[2018-05-08] MEDS: TEMAZEPAM 30 MG CAP PO SCH (20:32)
--- NOTE | 2018-05-08 20:35 | NUR ---
MEDS PT RESTING WELL, NO DISTRESS NOTED. DUE MEDS ADMINISTERED, TOLERATED WELL. KEPT COMFORTABLE IN BED. CALL LIGHT WITHIN REACH. WILL CONTINUE TO MONITOR.
--- NOTE | 2018-05-08 22:00 | NUR ---
ROUNDS PT FAIRLY ASLEEP WITH RESPIRATIONS EVEN AND UNLABORED. NO NOTED DISTRESS. KEPT UNDISTURBED FOR NOW. WILL CONTINUE TO MONITOR.
--- NOTE | 2018-05-09 01:40 | NUR ---
CHANGED PT CALLED TO GO TO THE RESTROOM BUT HAD ALREADY URINATED IN HER DIAPER. CLAIMS SHE COULD NOT WAIT TOO LONG. DIAPER CHANGED AND KEPT WARM AND DRY IN BED. ENCOURAGED TO REST AND GO BACK TO SLEEP. CALL LIGHT WITHIN REACH. WILL MONITOR PT.
[2018-05-09] MEDS: SODIUM CHLORIDE 0.9% 1000ML 1,000 ML IV SCH (03:01)
[2018-05-09 04:00] VITALS: BP 153/84
--- NOTE | 2018-05-09 05:36 | NUR ---
ROUNDS PT RESTING WELL, NO CONCERNS VERBALIZED. NO DISTRESS NOTED. KEPT RESTED AND COMFORTABLE. FOR MORE CARE.
[2018-05-09] MEDS: LEVOTHYROXINE 25 MCG TABLET PO SCH (06:06)
[2018-05-09] MEDS: PANTOPRAZOLE SODIUM 40 MG TABLET.DR PO SCH ×2 (06:06→15:55)
[2018-05-09] MEDS: POTASSIUM CHLORIDE 20 MEQ ERTAB PO PRN ×4 (06:09→15:55)
[2018-05-09] MEDS: LIDOCAINE HCL-MPF 1% 2ML VIAL IJ PRN (06:11)
[2018-05-09] MEDS: POTASSIUM CHLORIDE 20MEQ/100ML 100 ML IV PRN (06:11)
[2018-05-09 08:00] VITALS: BP 172/62
[2018-05-09] MEDS: MAGNESIUM HYDROXIDE 30 ML/UDCUP PO SCH (08:36)
[2018-05-09] MEDS: LEVETIRACETAM 500 MG TABLET PO SCH ×2 (08:37→19:48)
[2018-05-09] MEDS: FLUOXETINE HCL 20 MG CAPSULE PO SCH (08:37)
[2018-05-09] MEDS: MAGNESIUM OXIDE 400 MG TABLET PO SCH ×2 (08:37→19:48)
[2018-05-09] MEDS: PREGABALIN 100 MG CAPSULE PO SCH ×2 (08:38→19:48)
[2018-05-09] MEDS: CYCLOBENZAPRINE HCL 10 MG TABLET PO SCH (08:38)
[2018-05-09] MEDS: PREDNISONE 10 MG TABLET PO SCH (08:38)
[2018-05-09] MEDS: ALPRAZOLAM 0.5 MG TABLET PO SCH (08:38)
[2018-05-09] MEDS: FAMOTIDINE 20MG TAB 20 MG TAB PO SCH (08:38)
[2018-05-09 12:00] VITALS: BP 140/80
[2018-05-09] MEDS: IBUPROFEN 800 MG TAB PO PRN (12:00)
[2018-05-09] MEDS: HYDROCORTISONE 15 MG PO SCH (15:52)
[2018-05-09 16:00] VITALS: BP 136/78
[2018-05-09] MEDS: TEMAZEPAM 30 MG CAP PO SCH (19:48)
[2018-05-09] MEDS: ATORVASTATIN CALCIUM 40 MG TABLET PO SCH (19:48)
[2018-05-09 20:00] VITALS: BP 136/89
--- NOTE | 2018-05-09 22:00 | NUR ---
ROUNDS PT RESTING WELL, FAIRLY ASLEEP WITH RESPIRATIONS EVEN AND UNLABORED. NO NOTED DISTRESS. KEPT UNDISTURBED FOR NOW. WILL CONTINUE TO MONITOR. CALL LIGHT WITHIN REACH.
[2018-05-10] VITALS: BP 136/92
[2018-05-10] MEDS: SODIUM CHLORIDE 0.9% 1000ML 1,000 ML IV SCH (00:31)
--- NOTE | 2018-05-10 02:00 | NUR ---
ROUNDS PT RESTING WELL, FAIRLY ASLEEP WITH RESPIRATIONS EVEN AND UNLABORED. NO DISTRESS NOTED. KEPT UNDISTURBED FOR NOW. WILL CONTINUE TO MONITOR.
[2018-05-10 04:00] VITALS: BP 158/90
--- NOTE | 2018-05-10 05:36 | NUR ---
ROUNDS PT RESTING WELL, NO DISTRESS NOTED. NO CONCERNS VERBALIZED. KEPT RESTED. FOR MORE CARE.
[2018-05-10 05:46] LABS: CREATININE 0.7 mg/dL (0.5-1.5); POTASSIUM 4.2 mmol/L (3.5-5.1)
[2018-05-10] MEDS: PANTOPRAZOLE SODIUM 40 MG TABLET.DR PO SCH (05:52)
[2018-05-10] MEDS: LEVOTHYROXINE 25 MCG TABLET PO SCH (05:52)
[2018-05-10] MEDS: IBUPROFEN 800 MG TAB PO PRN (06:10)
[2018-05-10 08:00] VITALS: BP 177/103
[2018-05-10] MEDS: ALPRAZOLAM 0.5 MG TABLET PO SCH (09:52)
[2018-05-10] MEDS: MAGNESIUM HYDROXIDE 30 ML/UDCUP PO SCH (09:52)
[2018-05-10] MEDS: FLUOXETINE HCL 20 MG CAPSULE PO SCH (09:52)
[2018-05-10] MEDS: LEVETIRACETAM 500 MG TABLET PO SCH (09:52)
[2018-05-10] MEDS: PREGABALIN 100 MG CAPSULE PO SCH (09:52)
[2018-05-10] MEDS: MAGNESIUM OXIDE 400 MG TABLET PO SCH (09:53)
[2018-05-10] MEDS: FAMOTIDINE 20MG TAB 20 MG TAB PO SCH (09:53)
[2018-05-10] MEDS: PREDNISONE 10 MG TABLET PO SCH (10:05)
[2018-05-10] MEDS: CYCLOBENZAPRINE HCL 10 MG TABLET PO SCH (10:12)
[2018-05-10 11:44] VITALS: BP 142/84
--- NOTE | 2018-05-10 12:10 | NUR ---
PATIENT DISCHARGED HOME USING TEACH BACK TECHNIQUE RE; HOME MEDS, NO NEW MEDS. Follow up with Dr. Weems on Thursday call to set up an appointment at phone; [phone], we were unable to set up appointment for your due to staff being out to lunch. Follow up with Dr. Good multimedia journalist on 05/13/18 at 4:00pm. Call [phone] if unable to attend appointment. Call your primary doctor if abdominal pain reoccurs. Call [phone] if shortness of breath or chest pain does not resolve with rest. Upper endoscopy results will be given to you at discharge. Continue all current home medications. Call your primary doctor with any concerns about your health.
== END 2018-05-10 12:45 | disposition home or self-care (01) | DRG 445 ==
LOC: EDH 10:44 → 3AH 10:45 → OBSVTOIN 10:45
PROVIDERS: ADMIT Family Medicine; ATTEND Family Medicine
PROC: 0DJ08ZZ Inspection of Upper Intestinal Tract, Via Natural or Artificial Opening Endoscopic (ICD-10-PCS; principal; 2018-05-07)
DX: K80.50 Calculus of bile duct without cholangitis or cholecystitis without obstruction (principal); E87.1 Hypo-osmolality and hyponatremia; K83.8 Other specified diseases of biliary tract; I10 Essential (primary) hypertension; J44.9 Chronic obstructive pulmonary disease, unspecified; E87.6 Hypokalemia; E78.5 Hyperlipidemia, unspecified; Z96.649 Presence of unspecified artificial hip joint; K29.70 Gastritis, unspecified, without bleeding; R53.81 Other malaise; Z95.0 Presence of cardiac pacemaker; Z88.5 Allergy status to narcotic agent; Z88.0 Allergy status to penicillin; Z88.8 Allergy status to other drugs, medicaments and biological substances
CPT/HCPCS: 36415; 43231; 74178; 80048; 80053; 81001; 82550; 84132; 85025; 85027; 94640; 94664; G0378; J2270; J2405; J2704; J3480; J3490; J7030; J7512; Q9967

== ENCOUNTER → 2018-12-15 | Outpatient (CLI) | payer MEDICARE ==
[~2018-12-15] MED LIST changes: +CYCL5TAB PO; -HYDR-3894 PO; +HYDR5TAB8 PO; +PRED20TA3 PO; +PREG100C PO; -PREG200C PO; +TEMA30CA PO
== END | disposition home or self-care (01) ==
LOC: OIH 12:55
PROVIDERS: ATTEND Internal Medicine
DX: M19.041 Primary osteoarthritis, right hand (principal); M19.042 Primary osteoarthritis, left hand; M06.4 Inflammatory polyarthropathy
CPT/HCPCS: 73120; 73560

== ENCOUNTER 2019-01-30 20:34 | Emergency (ER) | payer MEDICARE ==
[~2019-01-30 20:34] MED LIST changes: -MIDO5TAB PO; +MIDO5TAB4 PO
[2019-01-30 22:00] LABS: BASOPHILS % (AUTO) 0.4 % (0.0-5.0); EOSINOPHILS % (AUTO) 0.7 % (0.0-8.0); HEMATOCRIT 41.3 % (36-48); LYMPHOCYTES % (AUTO) 11.9 % (21.0-51.0); MEAN CORPUSCULAR HEMOGLOBIN 31.5 pg (27.0-33.0); MEAN CORPUSCULAR HGB CONC 33.5 g/dL (32.0-36.0); MEAN CORPUSCULAR VOLUME 93.8 fL (79-99); MONOCYTES % (AUTO) 8.5 % (3.0-13.0); NEUTROPHILS % (AUTO) 78.5 % (40.0-77.0); PLATELET COUNT (AUTO) 298 K/uL (130-400); RED BLOOD CELL COUNT(AUTO) 4.41 MIL/uL (4.00-5.50); RED CELL DISTRIBUTION WIDTH 15.7 % (11.0-15.5); WHITE BLOOD COUNT (AUTO) 8.6 K/uL (4.8-10.8)
[2019-01-30 22:15] LABS: INR 1.03 (0.85-1.15); PARTIAL THROMBOPLASTIN TIME 28.8 SEC (26.3-35.5); PROTHROMBIN TIME 10.8 SEC (9.6-11.6)
[2019-01-30 22:22] LABS: POTASSIUM 3.6 mmol/L (3.5-5.1)
[2019-01-30 22:24] LABS: B-TYPE NATRIURETIC PEPTIDE 38 pg/mL (0-100)
[2019-01-30 22:31] LABS: ALBUMIN 3.1 g/dL (3.5-5.0); BILIRUBIN,TOTAL 0.4 mg/dL (0.2-1.0); TOTAL PROTEIN, SERUM 6.5 g/dL (6.0-8.3)
[2019-01-30 23:05] LABS: APPEARANCE,URINE Clear (CLEAR); BILIRUBIN,URINE Negative (NEGATIVE); COLOR,URINE Yellow (YELLOW); GLUCOSE, URINE (UA) Negative (NEGATIVE); KETONES,URINE Negative (NEGATIVE); LEUKOCYTE ESTERASE ,URINE Negative (NEGATIVE); NITRATE,URINE Negative (NEGATIVE); OCCULT BLOOD,URINE Negative (NEGATIVE); PROTEIN,URINE Negative (NEGATIVE); UROBILINOGEN,URINE 0.2 mg/dL (0.2-1.0)
== END 2019-01-30 23:44 | disposition home or self-care (01) ==
LOC: EDH 20:34
DX: M06.9 Rheumatoid arthritis, unspecified (principal); M79.602 Pain in left arm; M54.2 Cervicalgia; J44.9 Chronic obstructive pulmonary disease, unspecified; E78.5 Hyperlipidemia, unspecified; I10 Essential (primary) hypertension; Z95.0 Presence of cardiac pacemaker; Z88.0 Allergy status to penicillin; Z88.6 Allergy status to analgesic agent; Z88.8 Allergy status to other drugs, medicaments and biological substances; W01.0XXA Fall on same level from slipping, tripping and stumbling without subsequent striking against object, initial encounter; Y93.89 Activity, other specified; Y99.8 Other external cause status; Y92.89 Other specified places as the place of occurrence of the external cause
CPT/HCPCS: 36415; 70450; 71045; 72125; 73030; 73080; 73110; 80053; 81003; 82550; 83605; 83880; 84484; 85025; 85610; 85730; 87040; 93005

== ENCOUNTER 2020-06-20 15:25 | Inpatient (IN) | payer MEDICARE ==
[~2020-06-20] VITALS: Ht 160 cm; Wt 85.2 kg
[~2020-06-20 15:25] MED LIST changes: +AMLO5TAB4 PO; -CYCL5TAB PO; +ESCI20TA38 PO; +FERS325 PO; +FURO20TA4 PO; +HYDR-4419 PO; -HYDR5TAB8 PO; -LATA2.5D2 OP; -MIDO5TAB4 PO; -MOM30 PO; -PANT40TA25 PO; +PANT40TA54 PO; -PRAV40TA3 PO; -PRED20TA3 PO; -SERT50TA12 PO; -TIMO5DRO27 OP; +TIMO5SOL10 OU
[2020-06-20 16:49] LABS: APPEARANCE,URINE Clear (CLEAR); BILIRUBIN,URINE Negative (NEGATIVE); COLOR,URINE Yellow (YELLOW); GLUCOSE, URINE (UA) Negative (NEGATIVE); KETONES,URINE Trace mg/dL (NEGATIVE); LEUKOCYTE ESTERASE ,URINE Trace (NEGATIVE); NITRATE,URINE Negative (NEGATIVE); OCCULT BLOOD,URINE Negative (NEGATIVE); PH,URINE 5.5 (5.0-8.0); PROTEIN,URINE Negative (NEGATIVE)
[2020-06-20 17:03] LABS: ABG BASE EXCESS 6.5 mmol/L (-2.0-3.0); ABG HCO3 31.5 mmol/L (21.0-28.0); ABG OXYGEN SATURATION 98.1 % (95.0-99.0); ABG PCO2 47 mmHg (32-45)
[2020-06-20 17:08] LABS: BACTERIA,URINE Rare /HPF (None Seen); RBC,URINE 0-1 /HPF (0-1); SQUAMOUS EPITHELIAL CELL,UR Rare /HPF (0-2)
[2020-06-20 17:46] LABS: BASOPHILS % (AUTO) 0.2 % (0.0-5.0); HEMATOCRIT 42.2 % (36-48); LYMPHOCYTES % (AUTO) 8.1 % (21.0-51.0); MEAN CORPUSCULAR HEMOGLOBIN 29.2 pg (27.0-33.0); MEAN CORPUSCULAR HGB CONC 31.3 g/dL (32.0-36.0); MEAN CORPUSCULAR VOLUME 93.4 fL (79-99); MONOCYTES % (AUTO) 14.6 % (3.0-13.0); NEUTROPHILS % (AUTO) 73.1 % (40.0-77.0); PLATELET COUNT (AUTO) 301 K/uL (130-400); RED BLOOD CELL COUNT(AUTO) 4.52 MIL/uL (4.00-5.50); RED CELL DISTRIBUTION WIDTH 15.2 % (11.0-15.5); WHITE BLOOD COUNT (AUTO) 18.1 K/uL (4.8-10.8)
[2020-06-20 18:00] LABS: CREATININE 2.1 mg/dL (0.5-1.5); POTASSIUM 5.4 mmol/L (3.5-5.1)
[2020-06-20 18:05] LABS: ALBUMIN 2.3 g/dL (3.5-5.0); BILIRUBIN,TOTAL 0.4 mg/dL (0.2-1.0); TOTAL PROTEIN, SERUM 6.8 g/dL (6.0-8.3)
[2020-06-20 18:06] LABS: MAGNESIUM 3.9 mg/dL (1.80-2.40)
[2020-06-20 18:27] LABS: CRP QUANTITATIVE 268.9 mg/L (0.00-9.0)
[2020-06-20] MEDS ORDERED: ZOSYN 3.375GM+NS 50ML 50 ML IV ONE (19:56)
[2020-06-20] MEDS ORDERED: HEPARIN 25,000 UNITS/250ML D5W 250 ML IV SCH (20:30)
[2020-06-20] MEDS ORDERED: NITROGLYCERIN 0.4 MG SL TAB SL PRN (21:00)
[2020-06-20] MEDS ORDERED: LACTULOSE 20 GM/30 ML UDCUP PO PRN (21:00)
[2020-06-20] MEDS ORDERED: MAG/ALUM/SIMETH 30 ML UDCUP PO PRN (21:00)
[2020-06-20] MEDS: CEFTRIAXONE 1G VIAL IVP SCH (21:00)
[2020-06-20] MEDS: DOXYCYCLINE 100MG+NS 250ML 250 ML IV SCH (21:00)
[2020-06-20] MEDS ORDERED: ONDANSETRON 4MG INJ IV PRN (21:00)
[2020-06-20] MEDS ORDERED: DiphenhydrAMINE HCL 50 MG/ML VIAL IV PRN (21:00)
[2020-06-20] MEDS ORDERED: GUAIFENESIN-DM 200/20 MG 10 ML PO PRN (21:00)
[2020-06-20] MEDS ORDERED: ACETAMINOPHEN 325 MG TAB PO PRN ×2 (21:00)
[2020-06-20] MEDS ORDERED: DIPHENHYDRAMINE HCL 25 MG CAPSULE PO PRN (21:00)
[2020-06-20 21:44] LABS: CREATININE 2.3 mg/dL (0.5-1.5); POTASSIUM 5.9 mmol/L (3.5-5.1)
[2020-06-20 21:47] LABS: INR 1.11 (0.85-1.15)
[2020-06-20 21:48] LABS: PARTIAL THROMBOPLASTIN TIME 27.3 SEC (26.3-35.5)
[2020-06-20] MEDS ORDERED: CEFTRIAXONE 1G VIAL ONE (21:48)
[2020-06-20] MEDS ORDERED: HEPARIN 5,000 UNIT VIAL ONE (21:49)
[2020-06-20] MEDS ORDERED: DOXYCYCLINE 100MG+NS 250ML 250 ML IV ONE (21:50)
[2020-06-20] MEDS ORDERED: FAMOTIDINE 20MG VIAL IV ONE (21:50)
[2020-06-20] MEDS ORDERED: HEPARIN 25,000 UNITS/250ML D5W 250 ML IV ONE (21:50)
[2020-06-20] MEDS: IPRATROPIUM/ALBUTEROL SULFATE 3 ML SOLUTION IH SCH (22:27)
[2020-06-21] VITALS (8 sets, daily range): BP systolic 96–153; BP diastolic 51–95
[2020-06-21] MEDS: DEXTROSE 50%-WATER 25 GM/50 ML VIAL IV SCH ×2 (01:30→21:14)
[2020-06-21] MEDS: IPRATROPIUM/ALBUTEROL SULFATE 3 ML SOLUTION IH SCH ×6 (02:02→21:22)
[2020-06-21 06:01] LABS: BASOPHILS % (AUTO) 0.2 % (0.0-5.0); EOSINOPHILS % (AUTO) 1.4 % (0.0-8.0); HEMATOCRIT 36.7 % (36-48); LYMPHOCYTES % (AUTO) 5.6 % (21.0-51.0); MEAN CORPUSCULAR HGB CONC 33.2 g/dL (32.0-36.0); MEAN CORPUSCULAR VOLUME 90.4 fL (79-99); MONOCYTES % (AUTO) 11.5 % (3.0-13.0); NEUTROPHILS % (AUTO) 78.2 % (40.0-77.0); PLATELET COUNT (AUTO) 295 K/uL (130-400); RED BLOOD CELL COUNT(AUTO) 4.06 MIL/uL (4.00-5.50); RED CELL DISTRIBUTION WIDTH 15.1 % (11.0-15.5); WHITE BLOOD COUNT (AUTO) 28.2 K/uL (4.8-10.8)
[2020-06-21 06:23] LABS: BILIRUBIN,TOTAL 0.4 mg/dL (0.2-1.0); POTASSIUM 5.1 mmol/L (3.5-5.1); TOTAL PROTEIN, SERUM 5.9 g/dL (6.0-8.3)
[2020-06-21] MEDS ORDERED: DEXTROSE 50%-WATER 50 ML DISP.SYRIN IV ONE (06:27)
[2020-06-21] MEDS ORDERED: ALBUTEROL 0.083% 2.5 MG/3 ML INH IH ONE (06:33)
[2020-06-21] MEDS: CACL 1GM SYG IVP SCH ×2 (06:34→21:13)
[2020-06-21] MEDS: KAYEXALATE 15GM/60ML PO SCH ×2 (06:36→21:13)
[2020-06-21] MEDS: FUROSEMIDE 20MG VIAL IV SCH ×2 (06:36→21:13)
[2020-06-21] MEDS: INSULIN HUMULIN R 100 UNIT/ML 3ML IV SCH ×2 (06:48→21:13)
[2020-06-21] MEDS: FAMOTIDINE 20MG VIAL IV SCH (10:30)
[2020-06-21] MEDS: DOXYCYCLINE 100MG+NS 250ML 250 ML IV SCH ×2 (10:30→21:22)
[2020-06-21] MEDS: CEFTRIAXONE 1G VIAL IVP SCH ×2 (10:30→21:22)
[2020-06-21] MEDS: ASPIRIN 81MG CHEW TAB PO SCH (15:17)
[2020-06-21] MEDS ORDERED: BIMA12.5OS OD (18:50)
[2020-06-21] MEDS ORDERED: VENL100T4 PO (18:50)
[2020-06-21] MEDS ORDERED: POTA-10 PO (18:50)
[2020-06-21] MEDS ORDERED: PANT40TA55 PO (18:52)
[2020-06-21] MEDS ORDERED: CETI10TA87 PO (18:53)
[2020-06-21] MEDS ORDERED: DICL50TA9 PO (19:26)
[2020-06-21] MEDS ORDERED: TORS20TA4 PO (19:26)
[2020-06-21] MEDS ORDERED: LAMO100T16 PO (19:26)
[2020-06-21] MEDS ORDERED: GABA-529 PO (19:28)
[2020-06-21] MEDS ORDERED: NETA2.5D OP (19:31)
[2020-06-21] MEDS ORDERED: CYCL30DR OP (19:31)
[2020-06-22] MEDS: IPRATROPIUM/ALBUTEROL SULFATE 3 ML SOLUTION IH SCH ×7 (02:19→23:14)
[2020-06-22 04:00] VITALS: BP 129/70
[2020-06-22 05:13] LABS: BASOPHILS % (AUTO) 0.6 % (0.0-5.0); EOSINOPHILS % (AUTO) 0.6 % (0.0-8.0); HEMATOCRIT 34.4 % (36-48); LYMPHOCYTES % (AUTO) 10.9 % (21.0-51.0); MEAN CORPUSCULAR HEMOGLOBIN 29.2 pg (27.0-33.0); MEAN CORPUSCULAR HGB CONC 31.4 g/dL (32.0-36.0); MONOCYTES % (AUTO) 10.6 % (3.0-13.0); NEUTROPHILS % (AUTO) 74.9 % (40.0-77.0); PLATELET COUNT (AUTO) 267 K/uL (130-400); RED CELL DISTRIBUTION WIDTH 15.4 % (11.0-15.5); WHITE BLOOD COUNT (AUTO) 19.5 K/uL (4.8-10.8)
[2020-06-22 05:19] LABS: ALBUMIN 1.7 g/dL (3.5-5.0); BILIRUBIN,TOTAL 0.4 mg/dL (0.2-1.0); CREATININE 1.5 mg/dL (0.5-1.5); POTASSIUM 3.7 mmol/L (3.5-5.1); TOTAL PROTEIN, SERUM 5.4 g/dL (6.0-8.3)
[2020-06-22 07:00] VITALS: BP 135/101
[2020-06-22] MEDS: DOXYCYCLINE 100MG+NS 250ML 250 ML IV SCH ×2 (08:50→20:43)
[2020-06-22] MEDS: FAMOTIDINE 20MG VIAL IV SCH (08:51)
[2020-06-22] MEDS: CEFTRIAXONE 1G VIAL IVP SCH ×2 (08:51→20:43)
[2020-06-22] MEDS: ASPIRIN 81MG CHEW TAB PO SCH (08:51)
[2020-06-22 16:00] VITALS: BP 116/71
[2020-06-22] MEDS ORDERED: LORAZEPAM 1 MG TABLET PO PRN (20:30)
[2020-06-22] MEDS ORDERED: LORAZEPAM 1 MG TABLET ONE (20:34)
[2020-06-22] MEDS ORDERED: DEXTROSE 50%-WATER 50 ML DISP.SYRIN IV ONE (20:39)
[2020-06-22] MEDS: DEXTROSE 50%-WATER 25 GM/50 ML VIAL IV SCH (20:52)
[2020-06-22] MEDS: KAYEXALATE 15GM/60ML PO SCH (20:53)
[2020-06-22] MEDS: INSULIN HUMULIN R 100 UNIT/ML 3ML IV SCH (20:53)
[2020-06-22] MEDS: CACL 1GM SYG IVP SCH (20:53)
[2020-06-22] MEDS: FUROSEMIDE 20MG VIAL IV SCH (20:53)
[2020-06-23] VITALS: BP 133/56
[2020-06-23] MEDS: IPRATROPIUM/ALBUTEROL SULFATE 3 ML SOLUTION IH SCH ×7 (02:46→22:10)
[2020-06-23 04:00] VITALS: BP 139/95
[2020-06-23 04:41] LABS: BASOPHILS % (AUTO) 0.5 % (0.0-5.0); HEMATOCRIT 35.9 % (36-48); LYMPHOCYTES % (AUTO) 10.2 % (21.0-51.0); MEAN CORPUSCULAR HEMOGLOBIN 29.2 pg (27.0-33.0); MEAN CORPUSCULAR HGB CONC 31.2 g/dL (32.0-36.0); MEAN CORPUSCULAR VOLUME 93.7 fL (79-99); MONOCYTES % (AUTO) 9.3 % (3.0-13.0); NEUTROPHILS % (AUTO) 76.7 % (40.0-77.0); PLATELET COUNT (AUTO) 233 K/uL (130-400); RED BLOOD CELL COUNT(AUTO) 3.83 MIL/uL (4.00-5.50); RED CELL DISTRIBUTION WIDTH 15.2 % (11.0-15.5); WHITE BLOOD COUNT (AUTO) 16.4 K/uL (4.8-10.8)
[2020-06-23 04:58] LABS: ALBUMIN 1.8 g/dL (3.5-5.0); BILIRUBIN,TOTAL 0.4 mg/dL (0.2-1.0); POTASSIUM 3.3 mmol/L (3.5-5.1)
[2020-06-23] MEDS ORDERED: VANCOMYCIN PROTOCOL PER PHARMACY IV SCH (08:15)
[2020-06-23] MEDS ORDERED: COMPOUND IV REFRIGERATED 1 EACH IVSOLN MISC PRN (08:45)
[2020-06-23] MEDS ORDERED: VANCOMYCIN 1G 1.75 GM in 0.9% NACL 250ML 250 ML IV SCH (09:00)
[2020-06-23] MEDS: ASPIRIN 81MG CHEW TAB PO SCH (10:13)
[2020-06-23] MEDS: CEFTRIAXONE 1G VIAL IVP SCH ×2 (10:13→21:29)
[2020-06-23] MEDS: FAMOTIDINE 20MG VIAL IV SCH (10:13)
[2020-06-23] MEDS ORDERED: LIDOCAINE HCL-MPF 1% 2ML VIAL IV PRN (17:15)
[2020-06-23] MEDS ORDERED: POTASSIUM CHLORIDE 10MEQ/100ML 100 ML IV PRN (17:15)
[2020-06-23] MEDS ORDERED: KCL 20 MEQ ERTAB PO PRN (17:15)
[2020-06-23] MEDS: POTASSIUM CHLORIDE 10% ELIXIR 20 MEQ/15 ML UDCUP PO PRN (18:11)
[2020-06-23 19:42] VITALS: BP 142/121
[2020-06-23] MEDS: CACL 1GM SYG IVP SCH (21:29)
[2020-06-23] MEDS: KAYEXALATE 15GM/60ML PO SCH (21:29)
[2020-06-23] MEDS: DEXTROSE 50%-WATER 25 GM/50 ML VIAL IV SCH (21:30)
[2020-06-23] MEDS: INSULIN HUMULIN R 100 UNIT/ML 3ML IV SCH (21:30)
[2020-06-23 23:50] VITALS: BP 118/71
[2020-06-24] MEDS ORDERED: HYDROXYZINE 50MG VIAL 50 MG/ML VIAL IM SCH (00:15)
[2020-06-24] MEDS: FUROSEMIDE 20MG VIAL IV SCH ×2 (01:30→19:57)
[2020-06-24] MEDS: POTASSIUM CHLORIDE 10% ELIXIR 20 MEQ/15 ML UDCUP PO PRN (02:34)
[2020-06-24] MEDS: IPRATROPIUM/ALBUTEROL SULFATE 3 ML SOLUTION IH SCH ×6 (02:43→22:40)
[2020-06-24] MEDS ORDERED: LORAZEPAM 2 MG/ML 1 ML VIAL IM ONE (03:00)
[2020-06-24] MEDS ORDERED: LORAZEPAM 2 MG/ML 1 ML VIAL ONE (03:01)
[2020-06-24] MEDS ORDERED: HALOPERIDOL INJ 5 MG/ML VIAL ONE (04:18)
[2020-06-24 04:37] LABS: BASOPHILS % (AUTO) 0.3 % (0.0-5.0); EOSINOPHILS % (AUTO) 0.8 % (0.0-8.0); HEMATOCRIT 36.2 % (36-48); LYMPHOCYTES % (AUTO) 6.8 % (21.0-51.0); MEAN CORPUSCULAR HEMOGLOBIN 29.5 pg (27.0-33.0); MEAN CORPUSCULAR VOLUME 92.1 fL (79-99); MONOCYTES % (AUTO) 8.8 % (3.0-13.0); NEUTROPHILS % (AUTO) 81.6 % (40.0-77.0); PLATELET COUNT (AUTO) 269 K/uL (130-400); RED BLOOD CELL COUNT(AUTO) 3.93 MIL/uL (4.00-5.50); RED CELL DISTRIBUTION WIDTH 14.8 % (11.0-15.5); WHITE BLOOD COUNT (AUTO) 16.1 K/uL (4.8-10.8)
[2020-06-24 04:52] VITALS: BP 149/70
[2020-06-24 05:00] LABS: CREATININE 0.7 mg/dL (0.5-1.5); MAGNESIUM 1.6 mg/dL (1.80-2.40); PHOSPHORUS 1.8 mg/dL (2.5-4.9); POTASSIUM 3.9 mmol/L (3.5-5.1)
[2020-06-24 07:00] VITALS: BP 165/81
[2020-06-24] MEDS: VANCOMYCIN 1GM+NS 250ML IV SCH (08:28)
[2020-06-24] MEDS: CEFTRIAXONE 1G VIAL IVP SCH ×2 (08:28→20:21)
[2020-06-24] MEDS: CYCLOSPORINE OP SCH ×2 (08:28→19:54)
[2020-06-24] MEDS: FAMOTIDINE 20MG VIAL IV SCH (08:28)
[2020-06-24] MEDS ORDERED: MAGNESIUM 2GM PREMIX 50ML 50 ML IV PRN (09:00)
[2020-06-24] MEDS: ASPIRIN 81MG CHEW TAB PO SCH (09:00)
[2020-06-24] MEDS: VENLAFAXINE HCL XR 37.5 MG CAP PO SCH (09:00)
[2020-06-24] MEDS: LAMOTRIGINE 100 MG TABLET PO SCH (09:00)
[2020-06-24] MEDS ORDERED: ZIPRASIDONE MESYLATE 20 MG/VIAL IM SCH (14:00)
[2020-06-24] MEDS ORDERED: MAGNESIUM 2GM PREMIX 50ML 50 ML IV SCH (17:15)
[2020-06-24] MEDS ORDERED: PHARMACY COMMUNICATION MISC SCH (17:15)
[2020-06-24] MEDS ORDERED: [UNRECOGNIZED DRUG - OTHER] IV SCH (17:30)
[2020-06-24] MEDS ORDERED: POTASSIUM PHOSPHATE IV SCH (17:30)
[2020-06-24 19:49] VITALS: BP 144/122
[2020-06-24] MEDS: NETARSUDIL MESYLATE OP SCH (19:55)
[2020-06-24] MEDS: BIMATOPROST OD SCH (19:55)
[2020-06-24] MEDS: DEXTROSE 50%-WATER 25 GM/50 ML VIAL IV SCH (19:56)
[2020-06-24] MEDS: INSULIN HUMULIN R 100 UNIT/ML 3ML IV SCH (19:56)
[2020-06-24] MEDS: CACL 1GM SYG IVP SCH (19:57)
[2020-06-24] MEDS: KAYEXALATE 15GM/60ML PO SCH (19:58)
[2020-06-24] MEDS: TIMOLOL MALEATE 0.5% 5 ML BOTTLE OU SCH (20:22)
[2020-06-24] MEDS: GABAPENTIN 100 MG CAPSULE PO SCH (20:24)
[2020-06-24 23:39] VITALS: BP 124/55
[2020-06-25] MEDS ORDERED: GLUCAGON 1MG KIT 1 MG ML IM PRN (00:45)
[2020-06-25] MEDS ORDERED: DEXTROSE 50%-WATER 50 ML DISP.SYRIN IV PRN (00:45)
[2020-06-25] MEDS ORDERED: HYDROXYZINE 100MG/2ML VIAL IM SCH (00:45)
[2020-06-25] MEDS ORDERED: BENZONATATE 100 MG CAPSULE PO PRN (00:45)
[2020-06-25] MEDS ORDERED: BENZONATATE 100 MG CAPSULE PO ONE (00:54)
[2020-06-25] MEDS: IPRATROPIUM/ALBUTEROL SULFATE 3 ML SOLUTION IH SCH ×6 (02:28→22:13)
[2020-06-25 04:00] VITALS: BP 154/87
[2020-06-25 05:19] LABS: BASOPHILS % (AUTO) 0.4 % (0.0-5.0); EOSINOPHILS % (AUTO) 1.6 % (0.0-8.0); HEMATOCRIT 35.4 % (36-48); LYMPHOCYTES % (AUTO) 8.3 % (21.0-51.0); MEAN CORPUSCULAR HEMOGLOBIN 29.7 pg (27.0-33.0); MEAN CORPUSCULAR HGB CONC 32.5 g/dL (32.0-36.0); MEAN CORPUSCULAR VOLUME 91.5 fL (79-99); MONOCYTES % (AUTO) 11.9 % (3.0-13.0); PLATELET COUNT (AUTO) 311 K/uL (130-400); RED BLOOD CELL COUNT(AUTO) 3.87 MIL/uL (4.00-5.50); WHITE BLOOD COUNT (AUTO) 18.7 K/uL (4.8-10.8)
[2020-06-25 06:00] LABS: CREATININE 0.8 mg/dL (0.5-1.5); MAGNESIUM 2.4 mg/dL (1.80-2.40); PHOSPHORUS 2.2 mg/dL (2.5-4.9)
[2020-06-25] MEDS: CYCLOSPORINE OP SCH ×2 (09:00→21:00)
[2020-06-25] MEDS: LAMOTRIGINE 100 MG TABLET PO SCH (09:06)
[2020-06-25] MEDS: FAMOTIDINE 20MG VIAL IV SCH (09:06)
[2020-06-25] MEDS: VANCOMYCIN 1GM+NS 250ML IV SCH (09:07)
[2020-06-25] MEDS: CEFTRIAXONE 1G VIAL IVP SCH ×2 (09:07→22:22)
[2020-06-25] MEDS: VENLAFAXINE HCL XR 37.5 MG CAP PO SCH (09:07)
[2020-06-25] MEDS: ASPIRIN 81MG CHEW TAB PO SCH (09:07)
[2020-06-25 11:46] VITALS: BP 156/84
[2020-06-25 15:28] LABS: INR 1.2 (0.85-1.15); PROTHROMBIN TIME 12.9 SEC (9.6-11.6)
[2020-06-25 16:00] VITALS: BP 147/97
[2020-06-25] MEDS: BIMATOPROST OD SCH (21:00)
[2020-06-25] MEDS: NETARSUDIL MESYLATE OP SCH (21:00)
[2020-06-25] MEDS: INSULIN HUMULIN R 100 UNIT/ML 3ML IV SCH (22:05)
[2020-06-25] MEDS: DEXTROSE 50%-WATER 25 GM/50 ML VIAL IV SCH (22:05)
[2020-06-25] MEDS: KAYEXALATE 15GM/60ML PO SCH (22:06)
[2020-06-25] MEDS: FUROSEMIDE 20MG VIAL IV SCH (22:06)
[2020-06-25] MEDS: GABAPENTIN 100 MG CAPSULE PO SCH (22:22)
[2020-06-25] MEDS: TIMOLOL MALEATE 0.5% 5 ML BOTTLE OU SCH (22:23)
[2020-06-26] VITALS: BP 118/70
[2020-06-26] MEDS: IPRATROPIUM/ALBUTEROL SULFATE 3 ML SOLUTION IH SCH ×5 (02:20→18:59)
[2020-06-26 04:00] VITALS: BP 141/76
[2020-06-26 08:52] VITALS: BP 158/71
[2020-06-26] MEDS: LAMOTRIGINE 100 MG TABLET PO SCH (09:43)
[2020-06-26] MEDS: FAMOTIDINE 20MG VIAL IV SCH (09:43)
[2020-06-26] MEDS: ASPIRIN 81MG CHEW TAB PO SCH (09:43)
[2020-06-26] MEDS: CEFTRIAXONE 1G VIAL IVP SCH ×2 (09:43→21:10)
[2020-06-26] MEDS: CYCLOSPORINE OP SCH ×2 (09:45→21:00)
[2020-06-26] MEDS: VENLAFAXINE HCL XR 37.5 MG CAP PO SCH (09:47)
[2020-06-26 10:55] LABS: INR 1.25 (0.85-1.15); PROTHROMBIN TIME 12.8 SEC (9.6-11.6)
[2020-06-26] MEDS ORDERED: VANCOMYCIN 1G 1.5 GM in 0.9% NACL 250ML 250 ML IV SCH (11:00)
[2020-06-26 12:00] VITALS: BP 129/71
[2020-06-26 16:35] VITALS: BP 169/78
[2020-06-26] MEDS ORDERED: VANCOMYCIN 500MG+NS 100ML 100 ML IV SCH (18:00)
[2020-06-26 19:00] VITALS: BP 151/85
[2020-06-26] MEDS: BIMATOPROST OD SCH (21:00)
[2020-06-26] MEDS: NETARSUDIL MESYLATE OP SCH (21:00)
[2020-06-26] MEDS: GABAPENTIN 100 MG CAPSULE PO SCH (21:10)
[2020-06-26] MEDS: TIMOLOL MALEATE 0.5% 5 ML BOTTLE OU SCH (21:43)
[2020-06-27] VITALS: BP 181/91
[2020-06-27] MEDS: DEXTROSE 50%-WATER 25 GM/50 ML VIAL IV SCH (01:30)
[2020-06-27] MEDS: INSULIN HUMULIN R 100 UNIT/ML 3ML IV SCH (01:30)
[2020-06-27] MEDS: KAYEXALATE 15GM/60ML PO SCH (01:30)
[2020-06-27] MEDS: FUROSEMIDE 20MG VIAL IV SCH (01:30)
[2020-06-27] MEDS: IPRATROPIUM/ALBUTEROL SULFATE 3 ML SOLUTION IH SCH ×4 (01:32→11:09)
[2020-06-27 04:00] VITALS: BP 134/69
[2020-06-27 06:34] LABS: BASOPHILS % (AUTO) 0.4 % (0.0-5.0); EOSINOPHILS % (AUTO) 2.2 % (0.0-8.0); HEMATOCRIT 34.8 % (36-48); LYMPHOCYTES % (AUTO) 9.2 % (21.0-51.0); MEAN CORPUSCULAR HEMOGLOBIN 29.1 pg (27.0-33.0); MEAN CORPUSCULAR HGB CONC 31.6 g/dL (32.0-36.0); MEAN CORPUSCULAR VOLUME 92.1 fL (79-99); MONOCYTES % (AUTO) 14.7 % (3.0-13.0); NEUTROPHILS % (AUTO) 71.3 % (40.0-77.0); PLATELET COUNT (AUTO) 439 K/uL (130-400); RED BLOOD CELL COUNT(AUTO) 3.78 MIL/uL (4.00-5.50); RED CELL DISTRIBUTION WIDTH 15.2 % (11.0-15.5); WHITE BLOOD COUNT (AUTO) 15.7 K/uL (4.8-10.8)
[2020-06-27 06:41] LABS: CREATININE 0.7 mg/dL (0.5-1.5); POTASSIUM 3.6 mmol/L (3.5-5.1)
[2020-06-27 08:36] VITALS: BP 176/98
[2020-06-27] MEDS ORDERED: VANCOMYCIN 500MG+NS 100ML 100 ML IV SCH (09:00)
[2020-06-27] MEDS: CYCLOSPORINE OP SCH (09:00)
[2020-06-27] MEDS: FAMOTIDINE 20MG VIAL IV SCH (09:03)
[2020-06-27] MEDS: CEFTRIAXONE 1G VIAL IVP SCH (09:03)
[2020-06-27] MEDS: VENLAFAXINE HCL XR 37.5 MG CAP PO SCH (09:04)
[2020-06-27] MEDS: ASPIRIN 81MG CHEW TAB PO SCH (09:04)
[2020-06-27] MEDS: LAMOTRIGINE 100 MG TABLET PO SCH (09:07)
[2020-06-27 12:27] VITALS: BP 178/92
[2020-06-27] MEDS ORDERED: HYDRALAZINE 20MG/ML VIAL ONE (13:05)
[2020-06-27 14:03] VITALS: BP 105/66
[2020-06-27] MEDS ORDERED: HYDRALAZINE 20MG/ML VIAL IV SCH (15:05)
[2020-07-30] MEDS ORDERED: OMEP20CA12 PO (08:22)
[2020-07-30] MEDS ORDERED: ASCO500T10 PO (08:22)
[2020-07-30] MEDS ORDERED: MELA3TAB41 PO (08:22)
[2020-07-30] MEDS ORDERED: SANTO TP (08:22)
[2020-07-30] MEDS ORDERED: TEMA15CA PO (08:22)
[2020-07-30] MEDS ORDERED: PREG50 PO (08:22)
[2020-07-30] MEDS ORDERED: ONDA4TAB10 PO (08:22)
[2020-07-30] MEDS ORDERED: FERR324T10 PO (08:22)
[2020-07-30] MEDS ORDERED: LORA0.5T83 PO (08:22)
== END 2020-06-27 14:55 | DRG 189 ==
LOC: EDH 15:25 → EDHIP 20:59 → 4AH 06-21 00:02
PROVIDERS: ADMIT Family Medicine; ATTEND Family Medicine
PROC: 02HV33Z Insertion of Infusion Device into Superior Vena Cava, Percutaneous Approach (ICD-10-PCS; principal; 2020-06-26)
DX: J96.01 Acute respiratory failure with hypoxia (principal); N17.9 Acute kidney failure, unspecified; J44.1 Chronic obstructive pulmonary disease with (acute) exacerbation; L03.116 Cellulitis of left lower limb; L03.115 Cellulitis of right lower limb; G93.40 Encephalopathy, unspecified; N39.0 Urinary tract infection, site not specified; E87.5 Hyperkalemia; N18.9 Chronic kidney disease, unspecified; I87.2 Venous insufficiency (chronic) (peripheral); Z20.822 Contact with and (suspected) exposure to COVID-19; D69.2 Other nonthrombocytopenic purpura; E03.9 Hypothyroidism, unspecified; E11.22 Type 2 diabetes mellitus with diabetic chronic kidney disease; E11.51 Type 2 diabetes mellitus with diabetic peripheral angiopathy without gangrene; E78.00 Pure hypercholesterolemia, unspecified; E78.5 Hyperlipidemia, unspecified; E83.39 Other disorders of phosphorus metabolism; E83.42 Hypomagnesemia; F17.200 Nicotine dependence, unspecified, uncomplicated; F41.0 Panic disorder [episodic paroxysmal anxiety]; Z66 Do not resuscitate; I12.9 Hypertensive chronic kidney disease with stage 1 through stage 4 chronic kidney disease, or unspecified chronic kidney disease; R53.81 Other malaise; R58 Hemorrhage, not elsewhere classified; I25.10 Atherosclerotic heart disease of native coronary artery without angina pectoris; Z74.01 Bed confinement status; Z79.52 Long term (current) use of systemic steroids; Z90.710 Acquired absence of both cervix and uterus; Z90.49 Acquired absence of other specified parts of digestive tract; Z88.5 Allergy status to narcotic agent; Z88.0 Allergy status to penicillin; Z88.8 Allergy status to other drugs, medicaments and biological substances; Z95.0 Presence of cardiac pacemaker; Z95.828 Presence of other vascular implants and grafts; Z99.81 Dependence on supplemental oxygen; Z82.0 Family history of epilepsy and other diseases of the nervous system; Z80.42 Family history of malignant neoplasm of prostate; Z80.1 Family history of malignant neoplasm of trachea, bronchus and lung
CPT/HCPCS: 36415; 36600; 71045; 71250; 74176; 76770; 78582; 80048; 80053; 80202; 81001; 82435; 82550; 82803; 82947; 82948; 83605; 83735; 83880; 84100; 84132; 84145; 84295; 84484; 85018; 85025; 85378; 85610; 85730; 86140; 87040; 87088; 87324; 87426; 87804; 92610; 93005; 93925; 93970; 94640; 94664; 94760; 97039; A9540; A9558; C1894; G0378; J0360; J0696; J1200; J1610; J1630; J1644; J1815; J1940; J2060; J2543; J3370; J3410; J3475; J3486; J3490; J7050; J7070; U0003

== ENCOUNTER 2020-07-05 11:06 | Inpatient (IN) | payer MEDICARE ==
[~2020-07-05] VITALS: Ht 157.5 cm; Wt 81.2 kg
[~2020-07-05 11:06] MED LIST changes: -ALPR0.5T8 PO; -AMLO5TAB4 PO; +BIMA12.5OS OD; +CETI10TA87 PO; +CYCL30DR OP; +DICL50TA9 PO; -ESCI20TA38 PO; -FLUO40CA49 PO; -FURO20TA4 PO; +GABA-529 PO; +LAMO100T16 PO; -LEVE500T19 PO; +NETA2.5D OP; -PANT40TA54 PO; +PANT40TA55 PO; +POTA-10 PO; +TORS20TA4 PO; +VENL100T4 PO
[2020-07-05 11:31] LABS: BASOPHILS % (AUTO) 0.5 % (0.0-5.0); EOSINOPHILS % (AUTO) 2.5 % (0.0-8.0); HEMATOCRIT 33.6 % (36-48); MEAN CORPUSCULAR HEMOGLOBIN 29.8 pg (27.0-33.0); MEAN CORPUSCULAR VOLUME 90.3 fL (79-99); MONOCYTES % (AUTO) 11.8 % (3.0-13.0); NEUTROPHILS % (AUTO) 70.3 % (40.0-77.0); PLATELET COUNT (AUTO) 634 K/uL (130-400); RED BLOOD CELL COUNT(AUTO) 3.72 MIL/uL (4.00-5.50); RED CELL DISTRIBUTION WIDTH 15.6 % (11.0-15.5); WHITE BLOOD COUNT (AUTO) 12.8 K/uL (4.8-10.8)
[2020-07-05 11:49] LABS: CREATININE 1.1 mg/dL (0.5-1.5); POTASSIUM 3.2 mmol/L (3.5-5.1)
[2020-07-05 11:53] LABS: ALBUMIN 2.5 g/dL (3.5-5.0); BILIRUBIN,TOTAL 0.5 mg/dL (0.2-1.0); TOTAL PROTEIN, SERUM 6.4 g/dL (6.0-8.3)
[2020-07-05 12:22] LABS: B-TYPE NATRIURETIC PEPTIDE 57 pg/mL (0-100)
[2020-07-05 13:39] LABS: INR 1.14 (0.85-1.15); PROTHROMBIN TIME 12.3 SEC (9.6-11.6)
[2020-07-05 13:40] LABS: PARTIAL THROMBOPLASTIN TIME 27.9 SEC (26.3-35.5)
[2020-07-05 15:09] LABS: APPEARANCE,URINE Clear (CLEAR); BILIRUBIN,URINE Negative (NEGATIVE); COLOR,URINE Yellow (YELLOW); GLUCOSE, URINE (UA) Negative (NEGATIVE); KETONES,URINE 40 mg/dL (NEGATIVE); LEUKOCYTE ESTERASE ,URINE Negative (NEGATIVE); NITRATE,URINE Negative (NEGATIVE); OCCULT BLOOD,URINE Negative (NEGATIVE); PH,URINE 5.5 (5.0-8.0); PROTEIN,URINE Trace mg/dL (NEGATIVE); UROBILINOGEN,URINE 0.2 mg/dL (0.2-1.0)
[2020-07-05 15:50] LABS: BACTERIA,URINE Few /HPF (None Seen); MUCUS,URINE Few LPF (None Seen); RBC,URINE 0-1 /HPF (0-1); SQUAMOUS EPITHELIAL CELL,UR Rare /HPF (0-2); WBC,URINE 0-1 /HPF (0-1)
[2020-07-05] MEDS ORDERED: CEFTRIAXONE 1G VIAL ONE (17:18)
[2020-07-05] MEDS ORDERED: 0.9%NACL 50ML 50 ML IV ONE (17:20)
[2020-07-05] MEDS ORDERED: ONDANSETRON 4MG INJ IVP PRN (17:45)
[2020-07-05] MEDS ORDERED: GLUCAGON 1MG KIT 1 MG ML IM PRN (17:45)
[2020-07-05] MEDS ORDERED: MAGNESIUM 2GM PREMIX 50ML 50 ML IV PRN (17:45)
[2020-07-05] MEDS ORDERED: LIDOCAINE HCL-MPF 1% 2ML VIAL IV PRN ×2 (17:45)
[2020-07-05] MEDS ORDERED: DEXTROSE 50%-WATER 50 ML DISP.SYRIN IV PRN (17:45)
[2020-07-05] MEDS: NITROGLYCERIN 1GM OINT 1 INCH/1GM TD SCH (17:45)
[2020-07-05] MEDS ORDERED: POTASSIUM CHLORIDE 20MEQ/100ML 100 ML IV PRN (17:45)
[2020-07-05] MEDS ORDERED: LORAZEPAM 1 MG TABLET ONE (17:52)
[2020-07-05] MEDS ORDERED: IPRATROPIUM 0.5 MG/2.5 ML INH IH PRN (19:30)
[2020-07-05] MEDS ORDERED: ALBUTEROL 0.083% 2.5 MG/3 ML INH IH PRN (19:30)
[2020-07-05] MEDS ORDERED: IOHEXOL-350 75 ML VIAL IV ONE ×2 (20:42→22:07)
[2020-07-05] MEDS ORDERED: IPRATROPIUM 0.5 MG/2.5 ML INH IH ONE (21:25)
[2020-07-05] MEDS ORDERED: PANTOPRAZOLE 40 MG TAB DR ONE (21:27)
[2020-07-05] MEDS ORDERED: ALTEPLASE 2MG VIAL 2 MG/VIAL VIAL IVCATH SCH (21:33)
[2020-07-05] MEDS: ENOXAPARIN SODIUM 60 MG/0.6 ML SQ SCH (21:40)
[2020-07-05] MEDS ORDERED: ENOXAPARIN SODIUM 60 MG/0.6 ML SQ ONE (21:47)
[2020-07-05 23:25] VITALS: BP 114/47
[2020-07-06] MEDS ORDERED: MAAL30 PO (00:31)
[2020-07-06] MEDS ORDERED: BALS60OI TP (00:31)
[2020-07-06] MEDS ORDERED: LORA-192 PO (00:31)
[2020-07-06] MEDS ORDERED: ONDA4TAB4 PO (00:31)
[2020-07-06] MEDS ORDERED: BENZ-70 PO (00:31)
[2020-07-06] MEDS ORDERED: POTA-10 PO (00:31)
[2020-07-06] MEDS ORDERED: LACT10SO9 PO (00:31)
[2020-07-06] MEDS ORDERED: ASPI-1005 PO (00:31)
[2020-07-06] MEDS ORDERED: PVANC1GM IV (00:31)
[2020-07-06] MEDS ORDERED: FAMO-136 PO (00:31)
[2020-07-06] MEDS ORDERED: IPRA3AMP24 IH (00:31)
[2020-07-06] MEDS ORDERED: CEFT1VIA14 IM (00:31)
[2020-07-06] MEDS ORDERED: ZINC57OI4 TP (00:31)
[2020-07-06] MEDS ORDERED: NITR0.4T50 SL (00:31)
[2020-07-06] MEDS ORDERED: SANTO TP (00:31)
[2020-07-06] MEDS: NITROGLYCERIN 1GM OINT 1 INCH/1GM TD SCH ×4 (00:48→20:25)
[2020-07-06] MEDS ORDERED: BENZONATATE 100 MG CAPSULE PO PRN (02:45)
[2020-07-06] MEDS ORDERED: LACTULOSE 20 GM/30 ML UDCUP PO PRN (02:45)
[2020-07-06] MEDS ORDERED: MAG/ALUM/SIMETH 30 ML UDCUP PO PRN (02:45)
[2020-07-06] MEDS ORDERED: ZINC OXIDE OINT 114 GM TUBE TP SCH ×2 (02:45→07:15)
[2020-07-06 04:00] VITALS: BP 153/75
[2020-07-06] MEDS ORDERED: VANCOMYCIN PROTOCOL PER PHARMACY IV SCH (04:00)
[2020-07-06] MEDS: 0.9%NACL 1000ML 1,000 ML IV SCH ×4 (04:15→22:19)
[2020-07-06 04:44] LABS: MEAN CORPUSCULAR HEMOGLOBIN 28.8 pg (27.0-33.0); MEAN CORPUSCULAR HGB CONC 31.5 g/dL (32.0-36.0); MEAN CORPUSCULAR VOLUME 91.6 fL (79-99); RED BLOOD CELL COUNT(AUTO) 3.71 MIL/uL (4.00-5.50); RED CELL DISTRIBUTION WIDTH 15.6 % (11.0-15.5); WHITE BLOOD COUNT (AUTO) 13.4 K/uL (4.8-10.8)
[2020-07-06 04:54] LABS: POTASSIUM 3.3 mmol/L (3.5-5.1)
[2020-07-06] MEDS ORDERED: LEVOTHYROXINE 25 MCG TABLET ONE (05:37)
[2020-07-06] MEDS: LEVOTHYROXINE 25 MCG TABLET PO SCH (05:46)
[2020-07-06] MEDS: KCL 20 MEQ ERTAB PO PRN ×2 (05:46→11:04)
[2020-07-06] MEDS: ZINC OXIDE OINT 60GM TUBE TP SCH ×2 (07:45→19:45)
[2020-07-06 08:00] VITALS: BP 143/76
[2020-07-06] MEDS: RESTASIS EYE OP SCH ×2 (09:00→20:24)
[2020-07-06] MEDS ORDERED: VANCOMYCIN 1G VIAL IV SCH (09:00)
[2020-07-06] MEDS ORDERED: ENOXAPARIN SODIUM 30 MG/0.3 ML SQ SCH (09:00)
[2020-07-06] MEDS: IPRATROPIUM/ALBUTEROL SULFATE 3 ML SOLUTION IH SCH ×4 (10:00→22:00)
[2020-07-06 11:00] VITALS: BP 138/78
[2020-07-06] MEDS: VANCOMYCIN 1G/250ML KIT 250 ML IV SCH (11:00)
[2020-07-06] MEDS: TORSEMIDE 20 MG TAB PO SCH (11:03)
[2020-07-06] MEDS: ASPIRIN 81MG CHEW TAB PO SCH (11:03)
[2020-07-06] MEDS: FERROUS SULFATE 325 MG TABLET.DR PO SCH (11:04)
[2020-07-06] MEDS: FAMOTIDINE 20MG TAB PO SCH (11:04)
[2020-07-06] MEDS: LAMOTRIGINE 100 MG TABLET PO SCH (11:04)
[2020-07-06] MEDS: ENOXAPARIN SODIUM 60 MG/0.6 ML SQ SCH ×2 (11:06→20:25)
[2020-07-06] MEDS: PANTOPRAZOLE 40 MG TAB DR PO SCH (11:07)
[2020-07-06 16:00] VITALS: BP 112/70
[2020-07-06] MEDS: CEFTRIAXONE 1G VIAL IM SCH (17:00)
[2020-07-06 20:00] VITALS: BP 131/94
[2020-07-06] MEDS: LATANOPROST 2.5 ML DROPS OD SCH (20:24)
[2020-07-06] MEDS: RHOPRESSA OP SCH (20:24)
[2020-07-06] MEDS: GABAPENTIN 100 MG CAPSULE PO SCH (20:25)
[2020-07-06] MEDS: ATORVASTATIN 40 MG TABLET PO SCH (20:25)
[2020-07-06] MEDS: TIMOLOL EYE OU SCH (20:25)
[2020-07-07] MEDS: IPRATROPIUM/ALBUTEROL SULFATE 3 ML SOLUTION IH SCH ×5 (02:00→17:39)
[2020-07-07 04:01] VITALS: BP 172/80
[2020-07-07 04:33] LABS: HEMATOCRIT 28.6 % (36-48); MEAN CORPUSCULAR HEMOGLOBIN 29.7 pg (27.0-33.0); MEAN CORPUSCULAR HGB CONC 32.2 g/dL (32.0-36.0); MEAN CORPUSCULAR VOLUME 92.3 fL (79-99); RED BLOOD CELL COUNT(AUTO) 3.1 MIL/uL (4.00-5.50); RED CELL DISTRIBUTION WIDTH 15.8 % (11.0-15.5); WHITE BLOOD COUNT (AUTO) 10.1 K/uL (4.8-10.8)
[2020-07-07] MEDS: LEVOTHYROXINE 25 MCG TABLET PO SCH (06:36)
[2020-07-07] MEDS: NITROGLYCERIN 1GM OINT 1 INCH/1GM TD SCH ×3 (06:36→22:45)
[2020-07-07 08:28] VITALS: BP 130/75
[2020-07-07] MEDS: ZINC OXIDE OINT 60GM TUBE TP SCH ×2 (09:40→19:45)
[2020-07-07] MEDS: TORSEMIDE 20 MG TAB PO SCH (10:36)
[2020-07-07] MEDS: RESTASIS EYE OP SCH ×2 (10:36→21:00)
[2020-07-07] MEDS: ASPIRIN 81MG CHEW TAB PO SCH (10:36)
[2020-07-07] MEDS: VANCOMYCIN 1G/250ML KIT 250 ML IV SCH ×2 (10:36→11:49)
[2020-07-07] MEDS: FAMOTIDINE 20MG TAB PO SCH (10:37)
[2020-07-07] MEDS: LAMOTRIGINE 100 MG TABLET PO SCH (10:37)
[2020-07-07] MEDS: PANTOPRAZOLE 40 MG TAB DR PO SCH (10:37)
[2020-07-07] MEDS: ENOXAPARIN SODIUM 60 MG/0.6 ML SQ SCH ×2 (10:37→21:00)
[2020-07-07] MEDS: FERROUS SULFATE 325 MG TABLET.DR PO SCH (10:37)
[2020-07-07 11:50] VITALS: BP 143/70
[2020-07-07 14:44] LABS: PHOSPHORUS 2.7 mg/dL (2.5-4.9); THYROID STIMULATING HORMONE 4.25 uIU/mL (0.36-3.74); URIC ACID 4.9 mg/dL (2.6-7.2)
[2020-07-07 16:14] VITALS: BP 126/74
[2020-07-07] MEDS: CEFTRIAXONE 1G VIAL IM SCH ×2 (17:24→17:26)
[2020-07-07] MEDS: 0.9%NACL 1000ML 1,000 ML IV SCH (17:27)
[2020-07-07] MEDS: LORAZEPAM 1 MG TABLET PO PRN (18:33)
[2020-07-07 20:43] VITALS: BP 144/84
[2020-07-07] MEDS: RHOPRESSA OP SCH (21:00)
[2020-07-07] MEDS: TIMOLOL EYE OU SCH (21:00)
[2020-07-07] MEDS: ATORVASTATIN 40 MG TABLET PO SCH (21:00)
[2020-07-07] MEDS: LATANOPROST 2.5 ML DROPS OD SCH (21:00)
[2020-07-07] MEDS: GABAPENTIN 100 MG CAPSULE PO SCH (21:00)
[2020-07-07 23:44] VITALS: BP 138/69
[2020-07-08] MEDS: ACETAMINOPHEN 325 MG TAB PO PRN (00:51)
[2020-07-08] MEDS ORDERED: KETOROLAC 15MG/ML VIAL (15MG/ML) ONE (01:49)
[2020-07-08] MEDS: 0.9%NACL 1000ML 1,000 ML IV SCH ×2 (02:55→15:11)
[2020-07-08] MEDS: NITROGLYCERIN 1GM OINT 1 INCH/1GM TD SCH ×3 (06:33→21:15)
[2020-07-08] MEDS: ZINC OXIDE OINT 60GM TUBE TP SCH ×2 (06:34→19:39)
[2020-07-08] MEDS: LEVOTHYROXINE 25 MCG TABLET PO SCH (06:34)
[2020-07-08 08:00] VITALS: BP 188/87
[2020-07-08] MEDS: RESTASIS EYE OP SCH ×2 (08:28→19:37)
[2020-07-08] MEDS: KETOROLAC 15MG/ML VIAL (15MG/ML) IV PRN ×2 (08:46→15:10)
[2020-07-08] MEDS: TORSEMIDE 20 MG TAB PO SCH (08:50)
[2020-07-08] MEDS: FAMOTIDINE 20MG TAB PO SCH (08:50)
[2020-07-08] MEDS: ASPIRIN 81MG CHEW TAB PO SCH (08:50)
[2020-07-08] MEDS: FERROUS SULFATE 325 MG TABLET.DR PO SCH (08:50)
[2020-07-08] MEDS: LORAZEPAM 1 MG TABLET PO PRN ×2 (08:50→22:26)
[2020-07-08] MEDS: LAMOTRIGINE 100 MG TABLET PO SCH (08:50)
[2020-07-08] MEDS: PANTOPRAZOLE 40 MG TAB DR PO SCH (08:50)
[2020-07-08] MEDS: ENOXAPARIN SODIUM 60 MG/0.6 ML SQ SCH ×2 (08:51→21:15)
[2020-07-08 09:54] LABS: BASOPHILS % (AUTO) 0.8 % (0.0-5.0); EOSINOPHILS % (AUTO) 5.4 % (0.0-8.0); LYMPHOCYTES % (AUTO) 12.9 % (21.0-51.0); MEAN CORPUSCULAR HEMOGLOBIN 29.8 pg (27.0-33.0); MEAN CORPUSCULAR HGB CONC 32.4 g/dL (32.0-36.0); MEAN CORPUSCULAR VOLUME 92.1 fL (79-99); MONOCYTES % (AUTO) 13.8 % (3.0-13.0); NEUTROPHILS % (AUTO) 66.5 % (40.0-77.0); PLATELET COUNT (AUTO) 392 K/uL (130-400); RED BLOOD CELL COUNT(AUTO) 3.15 MIL/uL (4.00-5.50); RED CELL DISTRIBUTION WIDTH 15.6 % (11.0-15.5); WHITE BLOOD COUNT (AUTO) 8.5 K/uL (4.8-10.8)
[2020-07-08 10:04] LABS: POTASSIUM 2.6 mmol/L (3.5-5.1)
[2020-07-08] MEDS: POTASSIUM CHLORIDE 20MEQ/100ML 100 ML IV PRN ×2 (10:22→13:01)
[2020-07-08 12:00] VITALS: BP 171/78
[2020-07-08 16:00] VITALS: BP 186/84
[2020-07-08] MEDS: RHOPRESSA OP SCH (19:37)
[2020-07-08] MEDS: TIMOLOL EYE OU SCH (19:37)
[2020-07-08] MEDS: LATANOPROST 2.5 ML DROPS OD SCH (19:39)
[2020-07-08 19:54] VITALS: BP 143/87
[2020-07-08] MEDS: ATORVASTATIN 40 MG TABLET PO SCH (21:15)
[2020-07-08] MEDS: GABAPENTIN 100 MG CAPSULE PO SCH (21:15)
[2020-07-09] MEDS: 0.9%NACL 1000ML 1,000 ML IV SCH ×3 (00:45→19:34)
[2020-07-09] MEDS: NITROGLYCERIN 1GM OINT 1 INCH/1GM TD SCH ×3 (06:45→22:11)
[2020-07-09 06:53] LABS: HEMATOCRIT 27.3 % (36-48); MEAN CORPUSCULAR HEMOGLOBIN 29.1 pg (27.0-33.0); MEAN CORPUSCULAR HGB CONC 32.2 g/dL (32.0-36.0); MEAN CORPUSCULAR VOLUME 90.4 fL (79-99); RED BLOOD CELL COUNT(AUTO) 3.02 MIL/uL (4.00-5.50); RED CELL DISTRIBUTION WIDTH 15.6 % (11.0-15.5); WHITE BLOOD COUNT (AUTO) 8.7 K/uL (4.8-10.8)
[2020-07-09 07:07] LABS: POTASSIUM 3.3 mmol/L (3.5-5.1)
[2020-07-09 07:15] VITALS: BP 150/74
[2020-07-09] MEDS: RESTASIS EYE OP SCH ×2 (09:00→21:00)
[2020-07-09] MEDS: PANTOPRAZOLE 40 MG TAB DR PO SCH (09:37)
[2020-07-09] MEDS: VANCOMYCIN 1G/250ML KIT 250 ML IV SCH (09:37)
[2020-07-09] MEDS: TORSEMIDE 20 MG TAB PO SCH (09:38)
[2020-07-09] MEDS: ASPIRIN 81MG CHEW TAB PO SCH (09:38)
[2020-07-09] MEDS: FERROUS SULFATE 325 MG TABLET.DR PO SCH (09:38)
[2020-07-09] MEDS: LORAZEPAM 1 MG TABLET PO PRN (09:38)
[2020-07-09] MEDS: LAMOTRIGINE 100 MG TABLET PO SCH (09:38)
[2020-07-09] MEDS: FAMOTIDINE 20MG TAB PO SCH (09:38)
[2020-07-09] MEDS: LEVOTHYROXINE 25 MCG TABLET PO SCH (09:39)
[2020-07-09] MEDS: ENOXAPARIN SODIUM 60 MG/0.6 ML SQ SCH ×3 (09:39→22:11)
[2020-07-09] MEDS: ZINC OXIDE OINT 60GM TUBE TP SCH ×2 (09:40→22:08)
[2020-07-09 11:51] VITALS: BP 124/77
[2020-07-09] MEDS: POTASSIUM CHLORIDE 10% ELIXIR 20 MEQ/15 ML UDCUP PO PRN ×2 (12:53→15:29)
[2020-07-09] MEDS: KETOROLAC 15MG/ML VIAL (15MG/ML) IV PRN (12:56)
[2020-07-09] MEDS: ACETAMINOPHEN 325 MG TAB PO PRN (15:28)
[2020-07-09 16:00] VITALS: BP 133/74
[2020-07-09] MEDS: CEFTRIAXONE 1G VIAL IM SCH (16:41)
[2020-07-09] MEDS: HONEY 1 APPL/ML TUBE TP SCH (16:42)
[2020-07-09 20:00] VITALS: BP 107/79
[2020-07-09] MEDS: RHOPRESSA OP SCH (21:00)
[2020-07-09] MEDS: TIMOLOL EYE OU SCH (21:00)
[2020-07-09] MEDS: LATANOPROST 2.5 ML DROPS OD SCH (22:09)
[2020-07-09] MEDS: ATORVASTATIN 40 MG TABLET PO SCH (22:10)
[2020-07-09] MEDS: GABAPENTIN 100 MG CAPSULE PO SCH (22:10)
[2020-07-09 23:37] VITALS: BP 132/61
[2020-07-10] MEDS: LORAZEPAM 1 MG TABLET PO PRN ×3 (00:18→17:38)
[2020-07-10 05:11] VITALS: BP 138/71
[2020-07-10] MEDS: 0.9%NACL 1000ML 1,000 ML IV SCH ×2 (05:45→15:31)
[2020-07-10] MEDS: LEVOTHYROXINE 25 MCG TABLET PO SCH (05:46)
[2020-07-10] MEDS: NITROGLYCERIN 1GM OINT 1 INCH/1GM TD SCH ×3 (05:47→22:20)
[2020-07-10] MEDS: IPRATROPIUM/ALBUTEROL SULFATE 3 ML SOLUTION IH SCH ×5 (07:03→21:49)
[2020-07-10] MEDS: ENOXAPARIN SODIUM 60 MG/0.6 ML SQ SCH ×2 (09:00→20:32)
[2020-07-10] MEDS: RESTASIS EYE OP SCH ×2 (09:00→20:39)
[2020-07-10] MEDS: ASPIRIN 81MG CHEW TAB PO SCH (10:06)
[2020-07-10] MEDS: FAMOTIDINE 20MG TAB PO SCH (10:06)
[2020-07-10] MEDS: TORSEMIDE 20 MG TAB PO SCH (10:06)
[2020-07-10] MEDS: PANTOPRAZOLE 40 MG TAB DR PO SCH (10:06)
[2020-07-10] MEDS: FERROUS SULFATE 325 MG TABLET.DR PO SCH (10:06)
[2020-07-10] MEDS: LAMOTRIGINE 100 MG TABLET PO SCH (10:06)
[2020-07-10] MEDS: HONEY 1 APPL/ML TUBE TP SCH (10:07)
[2020-07-10] MEDS: VANCOMYCIN 1G/250ML KIT 250 ML IV SCH (10:08)
[2020-07-10] MEDS: ZINC OXIDE OINT 60GM TUBE TP SCH ×2 (10:08→15:40)
[2020-07-10 12:00] VITALS: BP 131/48
[2020-07-10] MEDS: KETOROLAC 15MG/ML VIAL (15MG/ML) IV PRN (15:40)
[2020-07-10] MEDS: CEFTRIAXONE 1G VIAL IM SCH (15:40)
[2020-07-10 16:00] VITALS: BP 91/48
[2020-07-10] MEDS: CEFTRIAXONE 1G VIAL IV SCH (17:08)
[2020-07-10 19:51] VITALS: BP 112/81
[2020-07-10] MEDS: GABAPENTIN 100 MG CAPSULE PO SCH (20:22)
[2020-07-10] MEDS: ATORVASTATIN 40 MG TABLET PO SCH (20:22)
[2020-07-10] MEDS: LATANOPROST 2.5 ML DROPS OD SCH (20:31)
[2020-07-10] MEDS: RHOPRESSA OP SCH (20:39)
[2020-07-10] MEDS: TIMOLOL EYE OU SCH (20:39)
[2020-07-10] MEDS: POTASSIUM CHLORIDE 20MEQ/100ML 100 ML IV PRN (22:51)
[2020-07-10 23:24] VITALS: BP 108/59
[2020-07-11] MEDS: KETOROLAC 15MG/ML VIAL (15MG/ML) IV PRN ×3 (00:16→14:19)
[2020-07-11] MEDS: IPRATROPIUM/ALBUTEROL SULFATE 3 ML SOLUTION IH SCH ×3 (01:40→10:17)
[2020-07-11] MEDS: 0.9%NACL 1000ML 1,000 ML IV SCH ×4 (02:45→23:55)
[2020-07-11 03:46] VITALS: BP 104/44
[2020-07-11 04:29] LABS: HEMATOCRIT 24.8 % (36-48); MEAN CORPUSCULAR HEMOGLOBIN 29.7 pg (27.0-33.0); MEAN CORPUSCULAR HGB CONC 33.1 g/dL (32.0-36.0); MEAN CORPUSCULAR VOLUME 89.9 fL (79-99); RED BLOOD CELL COUNT(AUTO) 2.76 MIL/uL (4.00-5.50); WHITE BLOOD COUNT (AUTO) 13.2 K/uL (4.8-10.8)
[2020-07-11 04:43] LABS: CREATININE 1.5 mg/dL (0.5-1.5); POTASSIUM 4.6 mmol/L (3.5-5.1)
[2020-07-11] MEDS: ZINC OXIDE OINT 60GM TUBE TP SCH ×2 (06:23→21:57)
[2020-07-11] MEDS: NITROGLYCERIN 1GM OINT 1 INCH/1GM TD SCH ×3 (06:23→23:50)
[2020-07-11] MEDS: LEVOTHYROXINE 25 MCG TABLET PO SCH (06:58)
[2020-07-11] MEDS: RESTASIS EYE OP SCH ×2 (09:00→21:00)
[2020-07-11] MEDS: PANTOPRAZOLE 40 MG TAB DR PO SCH (10:08)
[2020-07-11] MEDS: FAMOTIDINE 20MG TAB PO SCH (10:08)
[2020-07-11] MEDS: TORSEMIDE 20 MG TAB PO SCH (10:08)
[2020-07-11] MEDS: LAMOTRIGINE 100 MG TABLET PO SCH (10:08)
[2020-07-11] MEDS: FERROUS SULFATE 325 MG TABLET.DR PO SCH (10:08)
[2020-07-11] MEDS: ENOXAPARIN SODIUM 60 MG/0.6 ML SQ SCH ×2 (10:09→22:00)
[2020-07-11] MEDS: ASPIRIN 81MG CHEW TAB PO SCH (10:10)
[2020-07-11] MEDS ORDERED: COMPOUND IV REFRIGERATED 1 EACH IVSOLN MISC PRN (10:15)
[2020-07-11] MEDS: VANCOMYCIN 750MG + NS 250 ML IV SCH ×2 (10:23)
[2020-07-11] MEDS: CEFTRIAXONE 1G VIAL IV SCH (17:19)
[2020-07-11] MEDS: TIMOLOL EYE OU SCH (21:00)
[2020-07-11] MEDS: RHOPRESSA OP SCH (21:00)
[2020-07-11] MEDS: ATORVASTATIN 40 MG TABLET PO SCH (21:57)
[2020-07-11] MEDS: GABAPENTIN 100 MG CAPSULE PO SCH (21:59)
[2020-07-11] MEDS: LATANOPROST 2.5 ML DROPS OD SCH (22:05)
[2020-07-11 23:00] VITALS: BP 123/94
[2020-07-12] VITALS: BP 120/92
[2020-07-12 00:23] VITALS: BP 130/62
[2020-07-12] MEDS: LORAZEPAM 1 MG TABLET PO PRN ×2 (01:24→17:56)
[2020-07-12 05:24] LABS: HEMATOCRIT 23.1 % (36-48); MEAN CORPUSCULAR HEMOGLOBIN 29.4 pg (27.0-33.0); MEAN CORPUSCULAR HGB CONC 32.5 g/dL (32.0-36.0); MEAN CORPUSCULAR VOLUME 90.6 fL (79-99); RED BLOOD CELL COUNT(AUTO) 2.55 MIL/uL (4.00-5.50); RED CELL DISTRIBUTION WIDTH 16.5 % (11.0-15.5)
[2020-07-12 05:30] LABS: CREATININE 1.4 mg/dL (0.5-1.5); POTASSIUM 3.4 mmol/L (3.5-5.1)
[2020-07-12] MEDS: NITROGLYCERIN 1GM OINT 1 INCH/1GM TD SCH ×3 (06:35→22:45)
[2020-07-12] MEDS: ZINC OXIDE OINT 60GM TUBE TP SCH ×2 (06:37→20:50)
[2020-07-12] MEDS: 0.9%NACL 1000ML 1,000 ML IV SCH ×2 (06:39→19:29)
[2020-07-12] MEDS: LEVOTHYROXINE 25 MCG TABLET PO SCH (06:43)
[2020-07-12] MEDS: RESTASIS EYE OP SCH ×2 (09:00→20:55)
[2020-07-12] MEDS: VANCOMYCIN 750MG + NS 250 ML IV SCH ×2 (10:41)
[2020-07-12] MEDS: ASPIRIN 81MG CHEW TAB PO SCH ×2 (10:44→10:45)
[2020-07-12] MEDS: TORSEMIDE 20 MG TAB PO SCH (10:45)
[2020-07-12] MEDS: LAMOTRIGINE 100 MG TABLET PO SCH (10:45)
[2020-07-12] MEDS: FERROUS SULFATE 325 MG TABLET.DR PO SCH (10:45)
[2020-07-12] MEDS: PANTOPRAZOLE 40 MG TAB DR PO SCH (10:45)
[2020-07-12] MEDS: FAMOTIDINE 20MG TAB PO SCH (10:46)
[2020-07-12] MEDS: KETOROLAC 15MG/ML VIAL (15MG/ML) IV PRN ×2 (10:46→16:06)
[2020-07-12] MEDS: ENOXAPARIN SODIUM 60 MG/0.6 ML SQ SCH ×2 (10:46→20:49)
[2020-07-12 11:57] VITALS: BP 176/102
[2020-07-12] MEDS: POTASSIUM CHLORIDE 20MEQ/100ML 100 ML IV PRN (11:59)
[2020-07-12 16:00] VITALS: BP 130/71
[2020-07-12] MEDS: CEFTRIAXONE 1G VIAL IV SCH (16:05)
[2020-07-12] MEDS: ACETAMINOPHEN 325 MG TAB PO PRN (17:42)
[2020-07-12 19:39] VITALS: BP 112/61
[2020-07-12] MEDS: ATORVASTATIN 40 MG TABLET PO SCH (20:48)
[2020-07-12] MEDS: GABAPENTIN 100 MG CAPSULE PO SCH (20:48)
[2020-07-12] MEDS: LATANOPROST 2.5 ML DROPS OD SCH (20:51)
[2020-07-12] MEDS: RHOPRESSA OP SCH (20:56)
[2020-07-12] MEDS: TIMOLOL EYE OU SCH (20:56)
[2020-07-13 00:27] VITALS: BP 104/70
[2020-07-13] MEDS: ACETAMINOPHEN 325 MG TAB PO PRN ×2 (01:31→13:12)
[2020-07-13] MEDS ORDERED: HYDROMORPHONE 0.5 MG SYG (0.5MG/0.5ML) ONE (03:55)
[2020-07-13] MEDS ORDERED: KETOROLAC 15MG/ML VIAL (15MG/ML) IM PRN (04:00)
[2020-07-13] MEDS ORDERED: HYDROMORPHONE 0.5 MG SYG (0.5MG/0.5ML) IVP ONE (04:00)
[2020-07-13 04:02] VITALS: BP 144/75
[2020-07-13 05:16] LABS: HEMATOCRIT 24.6 % (36-48); MEAN CORPUSCULAR HGB CONC 32.9 g/dL (32.0-36.0); MEAN CORPUSCULAR VOLUME 91.1 fL (79-99); RED BLOOD CELL COUNT(AUTO) 2.7 MIL/uL (4.00-5.50); RED CELL DISTRIBUTION WIDTH 16.4 % (11.0-15.5); WHITE BLOOD COUNT (AUTO) 11.8 K/uL (4.8-10.8)
[2020-07-13 05:32] LABS: CREATININE 1.4 mg/dL (0.5-1.5); MAGNESIUM 1.5 mg/dL (1.80-2.40); POTASSIUM 3.6 mmol/L (3.5-5.1)
[2020-07-13] MEDS: NITROGLYCERIN 1GM OINT 1 INCH/1GM TD SCH ×3 (07:38→22:17)
[2020-07-13] MEDS: LEVOTHYROXINE 25 MCG TABLET PO SCH (07:38)
[2020-07-13 08:44] VITALS: BP 116/64
[2020-07-13] MEDS: RESTASIS EYE OP SCH ×2 (09:00→20:04)
[2020-07-13] MEDS: ASPIRIN 81MG CHEW TAB PO SCH (09:26)
[2020-07-13] MEDS: VANCOMYCIN 750MG + NS 250 ML IV SCH ×2 (09:26)
[2020-07-13] MEDS: FERROUS SULFATE 325 MG TABLET.DR PO SCH (09:26)
[2020-07-13] MEDS: LAMOTRIGINE 100 MG TABLET PO SCH (09:27)
[2020-07-13] MEDS: ENOXAPARIN SODIUM 60 MG/0.6 ML SQ SCH ×2 (09:27→19:55)
[2020-07-13] MEDS: TORSEMIDE 20 MG TAB PO SCH (09:28)
[2020-07-13] MEDS: FAMOTIDINE 20MG TAB PO SCH (09:28)
[2020-07-13] MEDS: PANTOPRAZOLE 40 MG TAB DR PO SCH (09:28)
[2020-07-13] MEDS: ZINC OXIDE OINT 60GM TUBE TP SCH ×2 (09:29→19:59)
[2020-07-13] MEDS: 0.9%NACL 1000ML 1,000 ML IV SCH (09:42)
[2020-07-13 13:56] VITALS: BP 120/71
[2020-07-13] MEDS ORDERED: ACETAMINOPHEN WITH CODEINE 1 TAB TAB ONE (15:12)
[2020-07-13] MEDS: CEFTRIAXONE 1G VIAL IV SCH (15:46)
[2020-07-13 16:40] LABS: APPEARANCE,URINE Clear (CLEAR); BILIRUBIN,URINE Negative (NEGATIVE); COLOR,URINE Yellow (YELLOW); GLUCOSE, URINE (UA) Negative (NEGATIVE); KETONES,URINE Negative (NEGATIVE); LEUKOCYTE ESTERASE ,URINE Moderate (NEGATIVE); NITRATE,URINE Negative (NEGATIVE); OCCULT BLOOD,URINE Negative (NEGATIVE); PROTEIN,URINE Negative (NEGATIVE); UROBILINOGEN,URINE 0.2 mg/dL (0.2-1.0)
[2020-07-13 16:56] LABS: BACTERIA,URINE Rare /HPF (None Seen); RBC,URINE None Seen /HPF (0-1); YEAST,URINE BUDDING Few /HPF (None Seen)
[2020-07-13 19:15] VITALS: BP 117/82
[2020-07-13 19:25] VITALS: BP 143/50
[2020-07-13] MEDS: GABAPENTIN 100 MG CAPSULE PO SCH (19:54)
[2020-07-13] MEDS: ATORVASTATIN 40 MG TABLET PO SCH (19:54)
[2020-07-13] MEDS: LORAZEPAM 1 MG TABLET PO PRN (19:54)
[2020-07-13] MEDS: KCL 20 MEQ ERTAB PO PRN (19:55)
[2020-07-13] MEDS: LATANOPROST 2.5 ML DROPS OD SCH (19:59)
[2020-07-13] MEDS: TIMOLOL EYE OU SCH (20:04)
[2020-07-13] MEDS: RHOPRESSA OP SCH (20:04)
[2020-07-13] MEDS: POTASSIUM CHLORIDE 10% ELIXIR 20 MEQ/15 ML UDCUP PO PRN (22:17)
[2020-07-14 00:42] VITALS: BP 123/70
[2020-07-14] MEDS: POTASSIUM CHLORIDE 10% ELIXIR 20 MEQ/15 ML UDCUP PO PRN (03:10)
[2020-07-14 04:59] VITALS: BP 117/73
[2020-07-14] MEDS: NITROGLYCERIN 1GM OINT 1 INCH/1GM TD SCH ×3 (05:17→23:04)
[2020-07-14] MEDS: LEVOTHYROXINE 25 MCG TABLET PO SCH (05:18)
[2020-07-14] MEDS: RESTASIS EYE OP SCH ×2 (09:00→19:46)
[2020-07-14] MEDS: FAMOTIDINE 20MG TAB PO SCH (09:14)
[2020-07-14] MEDS: ASPIRIN 81MG CHEW TAB PO SCH (09:15)
[2020-07-14] MEDS: TORSEMIDE 20 MG TAB PO SCH (09:15)
[2020-07-14] MEDS: PANTOPRAZOLE 40 MG TAB DR PO SCH (09:15)
[2020-07-14] MEDS: FERROUS SULFATE 325 MG TABLET.DR PO SCH (09:15)
[2020-07-14] MEDS: LAMOTRIGINE 100 MG TABLET PO SCH (09:15)
[2020-07-14] MEDS: ENOXAPARIN SODIUM 60 MG/0.6 ML SQ SCH ×2 (09:16→19:34)
[2020-07-14] MEDS: ZINC OXIDE OINT 60GM TUBE TP SCH ×2 (09:17→19:35)
[2020-07-14 09:43] VITALS: BP 124/71
[2020-07-14] MEDS: ACETAMINOPHEN WITH CODEINE 1 TAB TAB PO PRN (12:51)
[2020-07-14 13:38] VITALS: BP 153/81
[2020-07-14] MEDS: CEFTRIAXONE 1G VIAL IV SCH (17:48)
[2020-07-14] MEDS: ACETAMINOPHEN 325 MG TAB PO PRN (18:14)
[2020-07-14] MEDS: GABAPENTIN 100 MG CAPSULE PO SCH (19:31)
[2020-07-14] MEDS: ATORVASTATIN 40 MG TABLET PO SCH (19:31)
[2020-07-14] MEDS: LORAZEPAM 1 MG TABLET PO PRN (19:31)
[2020-07-14] MEDS: LATANOPROST 2.5 ML DROPS OD SCH (19:37)
[2020-07-14] MEDS: TIMOLOL EYE OU SCH (19:46)
[2020-07-14] MEDS: RHOPRESSA OP SCH (19:46)
[2020-07-14 20:38] VITALS: BP 129/72
[2020-07-14 23:29] VITALS: BP 147/80
[2020-07-15] MEDS: ACETAMINOPHEN WITH CODEINE 1 TAB TAB PO PRN ×3 (00:05→17:57)
[2020-07-15 03:57] VITALS: BP 148/83
[2020-07-15] MEDS: LEVOTHYROXINE 25 MCG TABLET PO SCH (06:08)
[2020-07-15] MEDS: NITROGLYCERIN 1GM OINT 1 INCH/1GM TD SCH ×2 (06:09→14:45)
[2020-07-15] MEDS ORDERED: VANCOMYCIN 500MG+NS 100ML 100 ML IV SCH (09:00)
[2020-07-15] MEDS: RESTASIS EYE OP SCH (09:00)
[2020-07-15 09:39] VITALS: BP 142/63
[2020-07-15] MEDS: ASPIRIN 81MG CHEW TAB PO SCH (10:15)
[2020-07-15] MEDS: ENOXAPARIN SODIUM 60 MG/0.6 ML SQ SCH (10:15)
[2020-07-15] MEDS: FAMOTIDINE 20MG TAB PO SCH (10:15)
[2020-07-15] MEDS: PANTOPRAZOLE 40 MG TAB DR PO SCH (10:15)
[2020-07-15] MEDS: TORSEMIDE 20 MG TAB PO SCH (10:15)
[2020-07-15] MEDS: LAMOTRIGINE 100 MG TABLET PO SCH (10:15)
[2020-07-15] MEDS: ZINC OXIDE OINT 60GM TUBE TP SCH (10:16)
[2020-07-15] MEDS: FERROUS SULFATE 325 MG TABLET.DR PO SCH (10:16)
[2020-07-15 12:00] VITALS: BP 148/77
[2020-07-15] MEDS ORDERED: LEVOFLOXACIN 500 MG TABLET PO SCH (12:15)
[2020-07-15] MEDS: ACETAMINOPHEN 325 MG TAB PO PRN (14:46)
[2020-07-15] MEDS ORDERED: DOXYCYCLINE HYCLATE 100 MG TABLET PO SCH (21:00)
[2020-07-30] MEDS ORDERED: LORA0.5T83 PO (08:22)
[2020-07-30] MEDS ORDERED: MELA3TAB41 PO (08:22)
[2020-07-30] MEDS ORDERED: ONDA4TAB10 PO (08:22)
[2020-07-30] MEDS ORDERED: SANTO TP (08:22)
[2020-07-30] MEDS ORDERED: FERR324T10 PO (08:22)
[2020-07-30] MEDS ORDERED: PREG50 PO (08:22)
[2020-07-30] MEDS ORDERED: TEMA15CA PO (08:22)
[2020-07-30] MEDS ORDERED: ASCO500T10 PO (08:22)
[2020-07-30] MEDS ORDERED: OMEP20CA12 PO (08:22)
== END 2020-07-15 18:35 | DRG 602 ==
LOC: EDH 11:06 → EDHIP 17:31 → OBSVTOIN 17:31 → 4AH 23:09 → 4BH 07-09 04:44
PROVIDERS: ADMIT Internal Medicine; ATTEND Internal Medicine
PROC: 0Y9C0ZZ Drainage of Right Upper Leg, Open Approach (ICD-10-PCS; principal; 2020-07-09)
DX: L03.116 Cellulitis of left lower limb (principal); J18.9 Pneumonia, unspecified organism; G92 Toxic encephalopathy; J44.0 Chronic obstructive pulmonary disease with (acute) lower respiratory infection; D84.9 Immunodeficiency, unspecified; J44.1 Chronic obstructive pulmonary disease with (acute) exacerbation; L97.919 Non-pressure chronic ulcer of unspecified part of right lower leg with unspecified severity; N39.0 Urinary tract infection, site not specified; L03.115 Cellulitis of right lower limb; I10 Essential (primary) hypertension; F41.9 Anxiety disorder, unspecified; E03.9 Hypothyroidism, unspecified; E66.9 Obesity, unspecified; E78.5 Hyperlipidemia, unspecified; E87.6 Hypokalemia; F03.90 Unspecified dementia, unspecified severity, without behavioral disturbance, psychotic disturbance, mood disturbance, and anxiety; I25.10 Atherosclerotic heart disease of native coronary artery without angina pectoris; F32.9 Major depressive disorder, single episode, unspecified; I73.9 Peripheral vascular disease, unspecified; I83.009 Varicose veins of unspecified lower extremity with ulcer of unspecified site; I87.2 Venous insufficiency (chronic) (peripheral); L97.529 Non-pressure chronic ulcer of other part of left foot with unspecified severity; S80.11XA Contusion of right lower leg, initial encounter; Z66 Do not resuscitate; Z74.01 Bed confinement status; Z79.899 Other long term (current) drug therapy; M06.9 Rheumatoid arthritis, unspecified; Z87.440 Personal history of urinary (tract) infections; Z87.891 Personal history of nicotine dependence; Z95.0 Presence of cardiac pacemaker; Z95.828 Presence of other vascular implants and grafts; R53.81 Other malaise; Z20.822 Contact with and (suspected) exposure to COVID-19
CPT/HCPCS: 36415; 71045; 71275; 80048; 80053; 80202; 81001; 82533; 83605; 83690; 83735; 83880; 84100; 84132; 84145; 84443; 84484; 84550; 85025; 85027; 85378; 85610; 85730; 86376; 86800; 87040; 87077; 87088; 87186; 87426; 93005; 93306; 93925; 93970; 94640; 94664; 97039; G0378; J0696; J1170; J1650; J1885; J2405; J2997; J3370; J3475; J3480; J7030; J7050; Q9967; U0003